=== PATIENT | male | born 1955 | race African-American/Black ===

== ENCOUNTER 2019-02-17 06:20 | Inpatient (IN) | payer BC, OTHER ==
--- NOTE | 2019-02-17 06:36 | PDOC ---
History of Present Illness - General Stated Complaint: NUMBNESS - History of Present Illness Initial Comments: 02/17/19 06:37 The patient is a 63 year old male who denies any significant PMH who presents for evaluation of weakness. The patient reports that he awoke at 1 am and was having difficulty ambulating due to right sided weakness. He noted that he "kept falling over" prompting his presentation to the ED for further evaluation. He states that when went to sleep at 9 pm yesterday evening he was asymptomatic. He otherwise denies fevers, chills, headache, nausea, vomiting, abdominal pain, chest pain, SOB, or changes with urination or bowel movements. tPA Exclusion checklist 3-4.5h - Time Elapsed Date last known well: 02/16/19 Time last known well: 21:00 Elaspsed time: Day(s) and 23 Hour(s) and 24 Minutes - Thrombolytic Therapy Candidate Is patient eligible for thrombolytic therapy: No - Ineligibility reason(s) Reasons No tPA given: Outside of window - delayed arrival NIH Stroke Scale - Last Known Well Date/Time & Onset Date Last Known Well: 02/16/19 Time Last Known Well: 21:00 - Initial Evaluation Level of consciousness: Alert Ask patient the month and their age: Answers both correctly Ask patient to open & close eyes; make fist and let go: Obeys both correctly Best gaze (horizontal eye movement): Normal Visual field testing: No visual field loss Facial paresis (Show teeth/raise eyebrows/close eyes tight): Partial paralysis ( total or near paralysis of lower face) Motor Function: Left Arm: Normal Motor Function: Right Arm: Drift Motor Function: Left Leg: Normal (extends leg 30 degrees for 5 seconds without drift) Motor Function: Right Leg: Drift Limb Ataxia: No ataxia Sensory(Use pinprick test arms,legs,trunk,face/side to side): Normal Best language (Describe picture, name items, read sentences): No Aphasia Dysarthria (read several words): Normal articulation Extinction and Inattention: No abnormality - Total Score NIH Stroke Scale Score: 4 Past History - Past Medical History Allergies/Adverse Reactions: Allergies Allergy/AdvReac Type Severity Reaction Status Date / Time No Known Allergies Allergy Verified 02/17/19 06:37 Home Medications: Ambulatory Orders NK [No Known Home Medication] 02/17/19 Review of Systems - Review of Systems Comments:: 02/17/19 06:44 Constitutional: No fevers, chills, fatigue, malaise HEENT: Facial Droop. No Rhinorrhea, nasal congestion, visual changes Cardiovascular: No chest pain, syncope, palpitations, lightheadedness Respiratory: No Cough, SOB, Hemoptysis, Gastrointestinal: No Abdominal pain, Nausea, Vomiting, Constipation, Diarrhea, Melena Genitourinary: No Dysuria, Frequency, Urgency, Hesitancy, Hematuria, Flank pain Musculoskeletal: No Myalgia, arthralgia Skin: No rashes, itching, bruising, pallor Neurologic: Right sided weakness. No Headache, Dizziness, Numbness, or Tingling Psychiatric: No Hallucinations. No SI or HI *Physical Exam - Physical Exam Comments: 02/17/19 06:45 General Appearance: Nourished. No Apparent Distress HEENT: EOMI, MARILYN. No Pharyngeal Erythema, Tonsillar Exudate, Tonsillar Erythema Neck: No Cervical Lymphadenopathy Respiratory/Chest: Lungs Clear, Normal Breath Sounds. No Crackles, Rales, Rhonchi, Wheezing Cardiovascular: Regular Rhythm, Regular Rate. No Murmur, Gallops, Rubs Gastrointestinal/Abdominal: Normal Bowel Sounds, Soft. No Guarding, Rebound, Tenderness Musculoskeletal: No CVA Tenderness Extremity: Normal Capillary Refill Integumentary: Normal Color, Dry, Warm Neurologic: Right sided facial droop with forehead sparing otherwise seismograph recorder II-XII NML intact, Fully Oriented, Alert, Normal Mood/Affect, Normal Response, Right arm 4/5 strength, Right leg 4/5 strength, Left arm 5/5 strength, Left leg 5/5 strength ED Treatment Course - LABORATORY CBC & Chemistry Diagram: 02/17/19 07:00 02/17/19 07:00 - RADIOLOGY Radiology Studies Ordered: Category Date Time Status HEAD CT (STROKE) [CT] Stat CT Scan 02/17/19 06:33 Ordered CHEST X-RAY PORTABLE* [RAD] Stat Radiology 02/17/19 06:33 Ordered Medical Decision Making - Medical Decision Making 02/17/19 06:47 The patient is a 63 year old male who denies any significant PMH who presents for evaluation of weakness. Differential includes but is not limited to: CVA, TIA, Infectious, Metabolic Derangement. Given the patient's history and physical exam, we will obtain a cbc, cmp, troponin, ua, urine culture, lipid profile, chest plain film, Head CT to evaluate further. We will continue to monitor and reassess while here in the ED. 02/17/19 07:[address] is negative for acute process as preliminarily read by our hand stoner radiologist. We will obtain a brain and neck CTA to evaluate further. The patient was signed out to Dr. De Guzman with the day team pending lab results, CTA imaging and likely admission. *DC/Admit/Observation/Transfer Diagnosis at time of Disposition: Cerebrovascular accident (CVA) - Discharge Dispostion Condition at time of disposition: Guarded - Referrals - Patient Instructions - Post Discharge Activity
--- NOTE | 2019-02-17 06:36 | PDOC ---
Attending Attestation - Resident Resident Name: Drew Aragonel - ED Attending Attestation I have performed the following: I have examined & evaluated the patient, The case was reviewed & discussed with the resident, I agree w/resident's findings & plan, Exceptions are as noted - HPI HPI: 02/17/19 06:35 63M denies PMH but has not been evaluated by a doctor in years, here today with new onset of focal neuro deficits. R sided weaknes, R sided facial droop with forehead sparing. Went to bed around 8pm and woke up around 1am with described symptoms. - Physicial Exam PE: 02/17/19 07:46 Agree with exam as documented by resident focal extremity and facial deficits - Medical Decision Making 02/17/19 07:46 After initial encounter, Code Crump initiated labs pending TPA not indicated Dry CT w/o hemorraghe, obvious ischemia, no dense obstruction signs f/u CTA head neck will need admission for complete work up
[2019-02-17] MEDS ORDERED: SODIUM CHLORIDE 1,000 ML IV SCH (06:45)
[2019-02-17 07:40] LABS: INR 1.11 (0.83-1.09); PROTHROMBIN TIME (PATIENT) 13.1 SEC (9.7-13.0)
[2019-02-17 07:57] LABS: ALBUMIN 4.1 g/dl (3.4-5.0); BILIRUBIN,TOTAL 0.3 mg/dL (0.2-1); BLOOD UREA NITROGEN 11.2 mg/dL (7-18); CALCIUM 8.8 mg/dL (8.5-10.1); CREATININE 1.2 mg/dL (0.55-1.3); POTASSIUM 4.1 mmol/L (3.5-5.1); TOT PROT 7.2 g/dl (6.4-8.2)
[2019-02-17 08:04] LABS: BASO % 0.5 % (0-2.0); EOS % 0.1 % (0-4.5); HEMATOCRIT 42.3 % (35.4-49); HEMOGLOBIN 14.3 GM/dL (11.7-16.9); LYMPH % 13.9 % (8-40); MCH 30.4 pg (25.7-33.7); MCHC 33.8 g/dl (32.0-35.9); MEAN PLT VOLUME 9.5 fl (7.5-11.1); MONO % 6.6 % (3.8-10.2); NEUT % 78.9 % (42.8-82.8); PLATELET COUNT 213 K/MM3 (134-434); RDW 14.5 % (11.9-15.9); WHITE BLOOD COUNT 8.9 K/mm3 (4.0-10.0)
--- NOTE | 2019-02-17 11:49 | PDOC ---
*Physical Exam - Vital Signs Last Vital Signs Temp Pulse Resp BP Pulse Ox 98.5 F 64 18 178/100 H 100 02/17/19 07:38 02/17/19 08:00 02/17/19 08:00 02/17/19 08:00 02/17/19 08:00 ED Treatment Course - LABORATORY CBC & Chemistry Diagram: 02/17/19 07:00 02/17/19 07:00 - ADDITIONAL ORDERS Additional order review: Laboratory Results 02/17/19 02/17/19 02/17/19 10:10 07:00 07:00 PT with INR 13.10 H INR 1.11 H Sodium Potassium Chloride Carbon Dioxide Anion Gap BUN Creatinine Est GFR (CKD-EPI)AfAm Est GFR (CKD-EPI)NonAf Random Glucose Calcium Total Bilirubin AST ALT Alkaline Phosphatase Creatine Kinase Creatine Kinase Index CK-MB (CK-2) Troponin I Total Protein Albumin Triglycerides Cholesterol Total LDL Cholesterol HDL Cholesterol Blood Type A POSITIVE A POSITIVE Antibody Screen Negative 02/17/19 02/17/19 02/17/19 07:00 07:00 07:00 PT with INR INR Sodium 141 Potassium 4.1 Chloride 108 H Carbon Dioxide 27 Anion Gap 6 L BUN 11.2 Creatinine 1.2 Est GFR (CKD-EPI)AfAm 75.19 Est GFR (CKD-EPI)NonAf 64.87 Random Glucose 100 Calcium 8.8 Total Bilirubin 0.3 AST 28 ALT 38 Alkaline Phosphatase 105 Creatine Kinase Creatine Kinase Index CK-MB (CK-2) Troponin I Total Protein 7.2 Albumin 4.1 Triglycerides 45 Cholesterol 141 Total LDL Cholesterol Cancelled 76 HDL Cholesterol 58 Blood Type Antibody Screen 02/17/19 06:38 PT with INR INR Sodium Potassium Chloride Carbon Dioxide Anion Gap BUN Creatinine Est GFR (CKD-EPI)AfAm Est GFR (CKD-EPI)NonAf Random Glucose Calcium Total Bilirubin AST ALT Alkaline Phosphatase Creatine Kinase 258 Creatine Kinase Index 0.8 CK-MB (CK-2) 2.2 Troponin I < 0.02 Total Protein Albumin Triglycerides Cholesterol Total LDL Cholesterol HDL Cholesterol Blood Type Antibody Screen 02/17/19 07:00 RBC 4.70 MCV 90.0 MCHC 33.8 RDW 14.5 MPV 9.5 Neutrophils % 78.9 Lymphocytes % 13.9 Monocytes % 6.6 Eosinophils % 0.1 Basophils % 0.5 Medical Decision Making - Medical Decision Making 02/17/19 11:48 Pt signed out to me by Dr. Aragon. 63M who presents with weakness, concerning for CVA. Pending CTA read. Dr. Velasco called and notified of stat requirement of reading. 02/17/19 11:54 Case d/w radiology who states that he does not see an occlusion. Will admit to stroke unit. *DC/Admit/Observation/Transfer Diagnosis at time of Disposition: Cerebrovascular accident (CVA) Qualifiers: CVA mechanism: unspecified Qualified Code(s): I63.9 - Cerebral infarction, unspecified - Discharge Dispostion Condition at time of disposition: Guarded Decision to Admit order: Yes - Referrals - Patient Instructions - Post Discharge Activity
[2019-02-17] MEDS ORDERED: ASPIRIN 325 MG TABLET PO ONE (12:48)
[2019-02-17] MEDS ORDERED: ATORVASTATIN CA 80 MG TABLET (FP) PO ONE (12:53)
--- NOTE | 2019-02-17 13:05 | PDOC ---
NIH Stroke Scale - Last Known Well Date/Time & Onset Date Last Known Well: 02/17/19 Time Last Known Well: 02:00 - Initial Evaluation Level of consciousness: Alert Ask patient the month and their age: Answers both correctly Ask patient to open & close eyes; make fist and let go: Obeys both correctly Best gaze (horizontal eye movement): Normal Visual field testing: No visual field loss Facial paresis (Show teeth/raise eyebrows/close eyes tight): Minor paralysis ( flattened nasolabial fold, asymmetry on smiling) Motor Function: Left Arm: Normal Motor Function: Right Arm: Normal (extends arm 90 (or 45) degrees for 10 seconds without drift Motor Function: Left Leg: Normal (extends leg 30 degrees for 5 seconds without drift) Motor Function: Right Leg: Normal (extends leg 30 degrees for 5 seconds without drift) Limb Ataxia: Present in one limb Sensory(Use pinprick test arms,legs,trunk,face/side to side): Normal Best language (Describe picture, name items, read sentences): Mild to moderate aphasia (according to cynthia present in ED, EXTREMELY SUBTLE difference between now and pt's baseline. Pt was worse hourse ago and has improved greatly) Dysarthria (read several words): Normal articulation Extinction and Inattention: No abnormality - Total Score NIH Stroke Scale Score: 3
[2019-02-17] MEDS ORDERED: ASPIRIN 325 MG TABLET ONE (13:09)
[2019-02-17] MEDS ORDERED: ATORVASTATIN CA 80 MG TABLET (FP) ONE (13:10)
--- NOTE | 2019-02-17 13:30 | HP ---
<Kali Avendaño - Last Filed: 02/17/19 13:31> CHIEF COMPLAINT: leg heaviness PCP: none. Agrees to come to resident's clinic HISTORY OF PRESENT ILLNESS: Pt is a 63 y/o M with no known medical history who has not seen a doctor "since he was born". He states that he was in his usual state of health until last night when he woke around 2 am to urinate. He states he suddenly felt weakness of the right leg and stumbled. He went to his bedroom and sat on his bed. He then stood and again felt weakness of the right leg and stumbled. He believed this to be the result of feeling sleepy as he just woke up. He drove himself to a friend's house and on seeing him, his friend insisted on coming to the doctor. In ED he was found to have RUE and RLE weakness and stroke code was activated. CT head, CTA head and neck were negative. CXR unremarkable. He was outside the TPA window. ER course was notable for: (1)as above (2) (3) Recent Travel: denies PAST MEDICAL HISTORY: none PAST SURGICAL HISTORY: Social History: Smoking: luis Alcohol: denies Drugs: occasional marijuana Allergies No Known Allergies Allergy (Verified 02/17/19 06:37) HOME MEDICATIONS: Home Medications Medication Instructions Recorded NK [No Known Home Medication] 02/17/19 REVIEW OF SYSTEMS CONSTITUTIONAL: Absent: fever, chills, diaphoresis, generalized weakness, malaise, loss of appetite, weight change HEENT: Absent: rhinorrhea, nasal congestion, throat pain, throat swelling, difficulty swallowing, mouth swelling, ear pain, eye pain, visual changes CARDIOVASCULAR: Absent: chest pain, syncope, palpitations, irregular heart rate, lightheadedness , peripheral edema RESPIRATORY: Absent: cough, shortness of breath, dyspnea with exertion, orthopnea, wheezing, stridor, hemoptysis GASTROINTESTINAL: Absent: abdominal pain, abdominal distension, nausea, vomiting, diarrhea, constipation, melena, hematochezia GENITOURINARY: Absent: dysuria, frequency, urgency, hesitancy, hematuria, flank pain, genital pain MUSCULOSKELETAL: Absent: myalgia, arthralgia, joint swelling, back pain, neck pain SKIN: Absent: rash, itching, pallor HEMATOLOGIC/IMMUNOLOGIC: Absent: easy bleeding, easy bruising, lymphadenopathy, frequent infections ENDOCRINE: Absent: unexplained weight gain, unexplained weight loss, heat intolerance, cold intolerance NEUROLOGIC: focal weakness or paresthesias Absent: headache, , dizziness, unsteady gait, seizure, mental status changes, bladder or bowel incontinence PSYCHIATRIC: Absent: anxiety, depression, suicidal or homicidal ideation, hallucinations. PHYSICAL EXAMINATION Vital Signs - 24 hr 02/17/19 02/17/19 02/17/19 06:26 06:40 06:45 Temperature 97.6 F Pulse Rate 66 66 Pulse Rate [ Right Radial] Respiratory 18 Rate Blood Pressure 187/118 H Blood Pressure 192/104 H [Left Arm] O2 Sat by Pulse 99 100 Oximetry (%) 02/17/19 02/17/19 02/17/19 06:56 07:28 07:38 Temperature 98.5 F Pulse Rate Pulse Rate [ 66 72 Right Radial] Respiratory 20 18 Rate Blood Pressure Blood Pressure 186/108 H 193/105 H [Left Arm] O2 Sat by Pulse 100 100 100 Oximetry (%) 02/17/19 02/17/19 08:00 12:37 Temperature 97.8 F Pulse Rate Pulse Rate [ 64 60 Right Radial] Respiratory 18 18 Rate Blood Pressure Blood Pressure 178/100 H 178/114 H [Left Arm] O2 Sat by Pulse 100 99 Oximetry (%) GENERAL: Awake, alert, and fully oriented, in no acute distress. HEAD: Normal with no signs of trauma. EYES: Pupils equal, round and reactive to light, extraocular movements intact, sclera anicteric, conjunctiva clear. No lid lag. EARS, NOSE, THROAT: Ears normal, nares patent, oropharynx clear without exudates. Moist mucous membranes. NECK: Normal range of motion, supple without lymphadenopathy, JVD, or masses. LUNGS: Breath sounds equal, clear to auscultation bilaterally. No wheezes, and no crackles. No accessory muscle use. HEART: Regular rate and rhythm, normal S1 and S2 without murmur, rub or gallop. ABDOMEN: Soft, nontender, not distended, normoactive bowel sounds, no guarding, no rebound, no masses. No hepatomegaly or splenomegaly. MUSCULOSKELETAL: Normal range of motion at all joints. No bony deformities or tenderness. No CVA tenderness. UPPER EXTREMITIES: 2+ pulses, warm, well-perfused. No cyanosis. No clubbing. No peripheral edema. LOWER EXTREMITIES: 2+ pulses, warm, well-perfused. No calf tenderness. No peripheral edema. NEUROLOGICAL: R nasolabial flattening and incomplete elevation on CN exam. PERRL, EOMI, symmetrical elevation of eyebrows. Shoulder shrug weaker on the right. CN 2-12 otherwise intact. RUE 4/5 strength in shoulder adduction/ abduction/flexion/extension, elbow flexion/extension, LUE 5/5 strength, RLE 4/5 strength hip flexion/extension, knee flexion/extension, 5/5 ankle flexion/ extension, LLE strength 5/5 throughout, sensation intact throughout (though pt notes background tingling in RUE & RLE), reflexes 2+ at b/l biceps, patellar, ankle. No pronator drift. Pt had difficulty with dysdiadochokenesia of R hand, R heel to li, and had R dysmetria. PSYCHIATRIC: Cooperative. Good eye contact. Appropriate mood and affect. SKIN: Warm, dry, normal turgor, no rashes or lesions noted, normal capillary refill. Laboratory Results - last 24 hr 02/17/19 02/17/19 02/17/19 06:38 07:00 07:00 WBC 8.9 RBC 4.70 Hgb 14.3 Hct 42.3 MCV 90.0 MCH 30.4 MCHC 33.8 RDW 14.5 Plt Count 213 MPV 9.5 Absolute Neuts (auto) 7.1 Neutrophils % 78.9 Lymphocytes % 13.9 Monocytes % 6.6 Eosinophils % 0.1 Basophils % 0.5 Nucleated RBC % 0 PT with INR INR Sodium Potassium Chloride Carbon Dioxide Anion Gap BUN Creatinine Est GFR (CKD-EPI)AfAm Est GFR (CKD-EPI)NonAf Random Glucose Calcium Total Bilirubin AST ALT Alkaline Phosphatase Creatine Kinase 258 Creatine Kinase Index 0.8 CK-MB (CK-2) 2.2 Troponin I < 0.02 Total Protein Albumin Triglycerides Cholesterol 141 Total LDL Cholesterol HDL Cholesterol Blood Type Antibody Screen 02/17/19 02/17/19 02/17/19 07:00 07:00 07:00 WBC RBC Hgb Hct MCV MCH MCHC RDW Plt Count MPV Absolute Neuts (auto) Neutrophils % Lymphocytes % Monocytes % Eosinophils % Basophils % Nucleated RBC % PT with INR 13.10 H INR 1.11 H Sodium 141 Potassium 4.1 Chloride 108 H Carbon Dioxide 27 Anion Gap 6 L BUN 11.2 Creatinine 1.2 Est GFR (CKD-EPI)AfAm 75.19 Est GFR (CKD-EPI)NonAf 64.87 Random Glucose 100 Calcium 8.8 Total Bilirubin 0.3 AST 28 ALT 38 Alkaline Phosphatase 105 Creatine Kinase Creatine Kinase Index CK-MB (CK-2) Troponin I Total Protein 7.2 Albumin 4.1 Triglycerides 45 Cholesterol Total LDL Cholesterol 76 Cancelled HDL Cholesterol 58 Blood Type Antibody Screen 02/17/19 02/17/19 07:00 10:10 WBC RBC Hgb Hct MCV MCH MCHC RDW Plt Count MPV Absolute Neuts (auto) Neutrophils % Lymphocytes % Monocytes % Eosinophils % Basophils % Nucleated RBC % PT with INR INR Sodium Potassium Chloride Carbon Dioxide Anion Gap BUN Creatinine Est GFR (CKD-EPI)AfAm Est GFR (CKD-EPI)NonAf Random Glucose Calcium Total Bilirubin AST ALT Alkaline Phosphatase Creatine Kinase Creatine Kinase Index CK-MB (CK-2) Troponin I Total Protein Albumin Triglycerides Cholesterol Total LDL Cholesterol HDL Cholesterol Blood Type A POSITIVE A POSITIVE Antibody Screen Negative ASSESSMENT/PLAN: This is a 63 y/o M with no PMH who presented to ED with signs and symptoms of cva/tia. #CVA/TIA -persistent RUE, RLE weakness, and R nasolabial fold flattening -ASA 325 given -ASA 81 daily -Atorvastatin 80 -Echo -Carotid doppler -lipids -Neuro consulted, recs appreciated -permissive HTN #HTN -will allow permissive HTN up to 185/120 until midnight BP elevated in ED. Will allow permissive HTN for total 24 hrs (ending around midnight tonight). Visit type - Emergency Visit Emergency Visit: Yes Care time: The patient presented to the Emergency Department on the above date and was hospitalized for further evaluation of their emergent condition. - New Patient This patient is new to me today: Yes Date on this admission: 02/17/19 - Critical Care Critical Care patient: No ATTENDING PHYSICIAN STATEMENT I saw and evaluated the patient. I reviewed the resident's note and discussed the case with the resident. I agree with the resident's findings and plan as documented. SUBJECTIVE: OBJECTIVE: ASSESSMENT AND PLAN: <Finn Ferguson - Last Filed: 02/17/19 16:45> Seen and examined; please refer to my note for further discussion. Verified all little components of history and PE ATTENDING PHYSICIAN STATEMENT I saw and evaluated the patient. I reviewed the resident's note and discussed the case with the resident. I agree with the resident's findings and plan as documented. SUBJECTIVE: OBJECTIVE: ASSESSMENT AND PLAN:
[2019-02-17 13:46] LABS: URINE APPEARANCE CLEAR; URINE BILIRUBIN NEGATIVE (NEGATIVE); URINE COLOR YELLOW; URINE GLUCOSE (UA) NEGATIVE (NEGATIVE); URINE KETONE NEGATIVE (NEGATIVE); URINE LEUK ESTERASE NEGATIVE (NEGATIVE); URINE NITRITE NEGATIVE (NEGATIVE); URINE PROTEIN NEGATIVE (NEGATIVE); URINE UROBILINOGEN 0.2 mg/dL (0.2-1.0)
[2019-02-17] MEDS: SODIUM CHLORIDE 1,000 ML IV SCH (13:50)
--- NOTE | 2019-02-17 13:58 | ECHO ---
Name: MORELIA, YURIDIA Exam:Adult Echocardiogram Study Date: 02/17/2019 01:19 PM Age: 63 yrs Reason For Study: CVA Height: 72 in Weight: 190 lb BSA: 2.1 m2 MMode/2D Measurements & Calculations IVSd: 1.3 cm Ao root diam: 3.1 cm LVIDd: 4.8 cm LA dimension: 3.7 cm LVIDs: 3.0 cm LVPWd: 0.95 cm EDV(Teich): 107.3 ml LVOT diam: 2.0 cm ESV(Teich): 35.0 ml LAV (MOD-bp): 54.8 ml Doppler Measurements & Calculations MV E max iker: 85.4 cm/sec Ao V2 max: 134.4 cm/sec MV A max iker: 59.2 cm/sec Ao max P.2 mmHg MV E/A: 1.4 MV dec time: 0.17 sec ALPA(V,D): 2.4 cm2 LV V1 max P.6 mmHg TR max iker: 238.2 cm/sec LV V1 max: 107.2 cm/sec TR max P.7 mmHg PA V2 max: 133.0 cm/sec Med Peak E' Iker: 6.5 cm/sec PA max P.1 mmHg Med E/e': 13.1 Lat Peak E' Iker: 13.7 cm/sec Lat E/e': 6.2 Left Ventricle There is mild concentric left ventricular hypertrophy. Left ventricular systolic function is normal. Ejection Fraction = 55-60%. Left Ventricular Filling pattern is normal for age. Right Ventricle The right ventricle is normal in size and function. Atria The interatrial septum is not well seen. Mitral Valve The mitral valve is normal in structure and function. There is no mitral valve stenosis. There is mil d mitral regurgitation. Tricuspid Valve The tricuspid valve is normal in structure and function. There is mild tricuspid regurgitation. Right ventricular systolic pressure is normal. Aortic Valve The aortic valve opens well. No hemodynamically significant valvular aortic stenosis. No aortic regur gitation is present. Pulmonic Valve The pulmonic valve is not well seen, but is grossly normal. There is no pulmonic valvular stenosis. T here is no pulmonic valvular regurgitation. Great Vessels The aortic root is normal size. Pericardium/Pleura There is no pericardial effusion. Interpretation Summary There is mild concentric left ventricular hypertrophy. Left ventricular systolic function is normal. Ejection Fraction = 55-60%. The interatrial septum is not well seen. There is mild mitral regurgitation. There is mild tricuspid regurgitation. Right ventricular systolic pressure is normal. There is no pericardial effusion. MD Lim *Meghan 02/17/2019 01:57 PM
--- NOTE | 2019-02-17 16:37 | PN ---
Teaching Attending Note Name of Resident: Kali Avendaño ATTENDING PHYSICIAN STATEMENT I saw and evaluated the patient. I reviewed the resident's note and discussed the case with the resident. I agree with the resident's findings and plan as documented. Patient seen and examined; please refer to resident note for further historical information. Briefly, this is a 63 y/o gentleman presenting with CVA vs. TIA; 2AM noted to have RLE weakness; now with RLE and RUE weakness, nasolabial flattening. NIHSS completed in ER and redone by resident team per documentation. 10 sys ROS done and negative aside from HPI. PMH, PSH, FH, SH reviewed. All vital parts of history and physical exam verified by myself and are accurate unless supplemented by myself. VS, labs, imaging reviewed NAD, AAO, resting comfortably in bed NC AT EOMI PERRLA RRR s1/2 Lungs CTAB, w/ sym exp NT ND +BS Normal mood, appropriate behavior Please refer to the wonderful NIHSS assessment by resident Dr. Avendaño for stroke scale; agree MRI pending Dopplers: Non-hemodynamically sig. minor stenosis CT, CTA head: No AVM or large clot, no Echo: Mild conc. LVH, mild valvular disease, no LAE with LVEF wnl Telemetry ordered; pending review EKG reviewed ASSESSMENT AND PLAN: Patient presents with symptoms suspicious for TIA/CVA. Will place on the floor with neuro checks, PT/ST eval, seizure precautions. Monitor tele. MRI, echo, carotid dopplers pending. Followup neurology consult; appreciate expert guidance in the ongoing management of this patient. Continue ASA, statin. Problems include: -R/O CVA -Uncontrolled HTN with alotment for permissive HTN with regard to #1 -Cannabis abuse NOS -Overweight (BMI >25) -Mild valvular disease Full Code
[2019-02-17 18:29] VITALS: BMI 24.0
[2019-02-17 18:39] LABS: COCAINE, UR NEGATIVE ng/ml (CUTOFF=300); METHADONE, UR NEGATIVE ng/ml (CUTOFF=300); OPIATES, URI NEGATIVE ng/ml (CUTOFF=300); PHENCYCLIDINE,URINE NEGATIVE ng/ml (CUTOFF=25); URINE AMPHETAMINES NEGATIVE ng/ml (CUTOFF=500); URINE BARBITURATES NEGATIVE ng/ml (CUTOFF=200); URINE BENZODIAZEPINES NEGATIVE ng/ml (CUTOFF=200)
[2019-02-17] MEDS ORDERED: cloNIDine HCL 0.1 MG TABLET PO ONE (19:30)
[2019-02-17] MEDS ORDERED: ATORVASTATIN CA 40 MG TABLET (FP) PO SCH (22:00)
[2019-02-18] MEDS: amLODIPine BESYLATE 5 MG TABLET (FP) PO SCH ×2 (08:30→09:09)
[2019-02-18] MEDS: ASPIRIN COATED 81 MG TABLET.EC PO SCH (09:15)
--- NOTE | 2019-02-18 10:02 | PN ---
Physical Exam: SUBJECTIVE: Patient seen and examined with RN; no new complaints this AM. Still has R-arm drife and R-leg drift and R-nasolabial flattening. No swallow deficits noted and passed ER swallow eval. Pending PT consult and neurology consult as well as MRI. A1c and lipids acceptable. Continue ASA81 and statin. BP elevated this AM; starting on amlodipine and will followup recommendations for permissive HTN. No events reported on telemetry will continue to monitor. Appreciate help from subspecialty services in the management of this medically complex patient. 10 sys ROS done and negative aside from HPI OBJECTIVE: Vital Signs Period Temp Pulse Resp BP Sys/Li Pulse Ox Last 24 Hr 97.8 F-98.6 F 54-96 18-24 117-198/75-117 98-100 GENERAL: The patient is awake, alert, and fully oriented, in no acute distress. HEAD: Normal with no signs of trauma. EYES: PERRL, extraocular movements intact, sclera anicteric, conjunctiva clear. No ptosis. ENT: Ears normal, nares patent, oropharynx clear without exudates, moist mucous membranes. NECK: Trachea midline, full range of motion, supple. LUNGS: Breath sounds equal, clear to auscultation bilaterally, no wheezes, no crackles, no accessory muscle use. HEART: Regular rate and rhythm, S1, S2 without murmur, rub or gallop. ABDOMEN: Soft, nontender, nondistended, normoactive bowel sounds, no guarding, no rebound, no hepatosplenomegaly, no masses. EXTREMITIES: 2+ pulses, warm, well-perfused, no edema. NEUROLOGICAL: R-nl flattening noted with R-arm and R-leg drift noted; supervisor kennel strength intact. No dysarthria or dysphagia. Did not assess gait-pending PT eval. PSYCH: Normal mood, normal affect. SKIN: Warm, dry, normal turgor, no rashes or lesions noted Laboratory Results - last 24 hr 02/17/19 02/17/19 02/17/19 10:10 13:20 13:20 ESR Hemoglobin A1c % Creatine Kinase 222 Creatine Kinase Index 0.8 CK-MB (CK-2) 1.9 Troponin I < 0.02 C-Reactive Protein Vitamin B12 TSH Urine Color Yellow Urine Appearance Clear Urine pH 8.0 Ur Specific [place] 1.042 H Urine Protein Negative Urine Glucose (UA) Negative Urine Ketones Negative Urine Blood Negative Urine Nitrite Negative Urine Bilirubin Negative Urine Urobilinogen 0.2 Ur Leukocyte Esterase Negative Opiates Screen Methadone Screen Barbiturate Screen Phencyclidine Screen Ur Amphetamines Screen MDMA (Ecstasy) Screen Benzodiazepines Screen Cocaine Screen U Marijuana (THC) Screen Blood Type A POSITIVE 02/17/19 02/17/19 02/17/19 18:00 21:00 21:00 ESR 5 Hemoglobin A1c % Creatine Kinase Creatine Kinase Index CK-MB (CK-2) Troponin I C-Reactive Protein < 0.3 Vitamin B12 TSH Urine Color Urine Appearance Urine pH Ur Specific [place] Urine Protein Urine Glucose (UA) Urine Ketones Urine Blood Urine Nitrite Urine Bilirubin Urine Urobilinogen Ur Leukocyte Esterase Opiates Screen Negative Methadone Screen Negative Barbiturate Screen Negative Phencyclidine Screen Negative Ur Amphetamines Screen Negative MDMA (Ecstasy) Screen Negative Benzodiazepines Screen Negative Cocaine Screen Negative U Marijuana (THC) Screen Positive A* Blood Type 02/18/19 02/18/19 02/18/19 05:20 05:20 05:20 ESR Hemoglobin A1c % 5.9 Creatine Kinase Creatine Kinase Index CK-MB (CK-2) Troponin I C-Reactive Protein Vitamin B12 464 TSH 0.52 Urine Color Urine Appearance Urine pH Ur Specific [place] Urine Protein Urine Glucose (UA) Urine Ketones Urine Blood Urine Nitrite Urine Bilirubin Urine Urobilinogen Ur Leukocyte Esterase Opiates Screen Methadone Screen Barbiturate Screen Phencyclidine Screen Ur Amphetamines Screen MDMA (Ecstasy) Screen Benzodiazepines Screen Cocaine Screen U Marijuana (THC) Screen Blood Type Active Medications Generic Name Dose Route Start Last Admin Trade Name Susy PRN Reason Stop Dose Admin Amlodipine Besylate 5 mg 02/18/19 10:00 02/18/19 09:09 Norvasc - PO Not Given DAILY OSMANY Aspirin 81 mg 02/18/19 10:00 02/18/19 09:15 Ecotrin - PO 81 mg DAILY OSMANY Administration Atorvastatin Calcium 40 mg 02/18/19 22:00 Lipitor - PO HS OSMANY Sodium Chloride 1,000 mls @ 42 mls/hr 02/17/19 13:00 02/17/19 13:50 Normal Saline - IV 42 mls/hr ASDIR OSMANY Administration ASSESSMENT/PLAN: Patient presents with symptoms suspicious for CVA; they have persisted >24 hours. He is still pending MRI and is on ASA and statin. He is pending neurology consult. Started on amlodipine for HTN. Monitoring on tele. Echo, CT head, carotid dopplers, and angiography reviewed and without significant acute abnormality. Appreciate neurology input in the ongoing management of this patient. Problems include: -R/O CVA -Uncontrolled HTN with allotment for permissive HTN with regard to #1 (Started on Amlodipine, following guidelines for permissive HTN) -Cannabis abuse NOS -Overweight (BMI >25) -Mild valvular disease Full Code Visit type - Emergency Visit Emergency Visit: No - New Patient This patient is new to me today: No - Critical Care Critical Care patient: No
--- NOTE | 2019-02-18 11:25 | CONSULT ---
Consult - text type - Consultation Consultation Note: Neurology HISTORY OF PRESENT ILLNESS: Pt is a 63 y/o M with no known medical history who has not seen a doctor "since he was born". He stated that he was in his usual state of health until last night, night prior to admission when he woke around 2 am to urinate. He stated he suddenly felt weakness of the right leg and stumbled. He went to his bedroom and sat on his bed. He then stood and again felt weakness of the right leg and stumbled. He believed this to be the result of feeling sleepy as he just woke up. He drove himself to a friend's house and on seeing him, his friend insisted on coming to the doctor. Head CT showed mild to moderate volume loss without acute changes. Head/Neck CTA howed tiny calcified plaque in the left common bifurcation without hemodynamic significant stenosis. Carotid doppler completed with mild thickening of the common bifurcation bilaterally without hemodynamic significant stenosis. Echocardiogram completed with EF 55-60%, mild mirtal and tricuspid regurgitation. Will need MRI brain to evaluate further and not yet completed. Reports improved strength in RLE. LDL checked and in normal range, therefore would not require statin. Recent Travel: denies PAST MEDICAL HISTORY: none PAST SURGICAL HISTORY: Social History: Smoking: luis Alcohol: denies Drugs: occasional marijuana Allergies No Known Allergies Allergy (Verified 02/17/19 06:37) HOME MEDICATIONS: Ambulatory Orders NK [No Known Home Medication] 02/17/19 REVIEW OF SYSTEMS CONSTITUTIONAL: Absent: fever, chills, diaphoresis, generalized weakness, malaise, loss of appetite, weight change HEENT: Absent: rhinorrhea, nasal congestion, throat pain, throat swelling, difficulty swallowing, mouth swelling, ear pain, eye pain, visual changes CARDIOVASCULAR: Absent: chest pain, syncope, palpitations, irregular heart rate, lightheadedness , peripheral edema RESPIRATORY: Absent: cough, shortness of breath, dyspnea with exertion, orthopnea, wheezing, stridor, hemoptysis GASTROINTESTINAL: Absent: abdominal pain, abdominal distension, nausea, vomiting, diarrhea, constipation, melena, hematochezia GENITOURINARY: Absent: dysuria, frequency, urgency, hesitancy, hematuria, flank pain, genital pain MUSCULOSKELETAL: Absent: myalgia, arthralgia, joint swelling, back pain, neck pain SKIN: Absent: rash, itching, pallor HEMATOLOGIC/IMMUNOLOGIC: Absent: easy bleeding, easy bruising, lymphadenopathy, frequent infections ENDOCRINE: Absent: unexplained weight gain, unexplained weight loss, heat intolerance, cold intolerance NEUROLOGIC: focal weakness or paresthesias Absent: headache, , dizziness, unsteady gait, seizure, mental status changes, bladder or bowel incontinence PSYCHIATRIC: Absent: anxiety, depression, suicidal or homicidal ideation, hallucinations. PHYSICAL EXAMINATION Vital Signs Period Temp Pulse Resp BP Sys/Li Pulse Ox Last 24 Hr 97.8 F-98.6 F 54-96 18-24 117-198/75-117 98-100 GENERAL: Awake, alert, and fully oriented, in no acute distress. HEAD: Normal with no signs of trauma. EYES: Pupils equal, round and reactive to light, extraocular movements intact, sclera anicteric, conjunctiva clear. No lid lag. EARS, NOSE, THROAT: Ears normal, nares patent, oropharynx clear without exudates. Moist mucous membranes. NECK: Normal range of motion, supple without lymphadenopathy, JVD, or masses. LUNGS: Breath sounds equal, clear to auscultation bilaterally. No wheezes, and no crackles. No accessory muscle use. HEART: Regular rate and rhythm, normal S1 and S2 without murmur, rub or gallop. ABDOMEN: Soft, nontender, not distended, normoactive bowel sounds, no guarding, no rebound, no masses. No hepatomegaly or splenomegaly. MUSCULOSKELETAL: Normal range of motion at all joints. No bony deformities or tenderness. No CVA tenderness. UPPER EXTREMITIES: 2+ pulses, warm, well-perfused. No cyanosis. No clubbing. No peripheral edema. LOWER EXTREMITIES: 2+ pulses, warm, well-perfused. No calf tenderness. No peripheral edema. NEUROLOGICAL: R nasolabial flattening and incomplete elevation on CN exam. PERRL, EOMI, symmetrical elevation of eyebrows. Shoulder shrug weaker on the right. CN 2-12 otherwise intact. RUE 5-/5 strength, LUE 5/5 strength, RLE 4+/5 strength hip flexion/extension, knee flexion/extension, LLE strength 5/5 throughout, sensation intact throughout, reflexes 2+ at b/l biceps, patellar, ankle, No pronator drift. Pt had difficulty with dysdiadochokenesia of R hand, R heel to li, and had R dysmetria. PSYCHIATRIC: Cooperative. Good eye contact. Appropriate mood and affect. SKIN: Warm, dry, normal turgor, no rashes or lesions noted, normal capillary refill. CBCD WBC 8.9 K/mm3 (4.0-10.0) 02/17/19 07:00 RBC 4.70 M/mm3 (4.00-5.60) 02/17/19 07:00 Hgb 14.3 GM/dL (11.7-16.9) 02/17/19 07:00 Hct 42.3 % (35.4-49) 02/17/19 07:00 MCV 90.0 fl (80-96) 02/17/19 07:00 MCHC 33.8 g/dl (32.0-35.9) 02/17/19 07:00 RDW 14.5 % (11.9-15.9) 02/17/19 07:00 Plt Count 213 K/MM3 (134-434) 02/17/19 07:00 MPV 9.5 fl (7.5-11.1) 02/17/19 07:00 CMP Sodium 141 mmol/L (136-145) 02/17/19 07:00 Potassium 4.1 mmol/L (3.5-5.1) 02/17/19 07:00 Chloride 108 mmol/L (98-107) H 02/17/19 07:00 Carbon Dioxide 27 mmol/L (21-32) 02/17/19 07:00 Anion Gap 6 MMOL/L (8-16) L 02/17/19 07:00 BUN 11.2 mg/dL (7-18) 02/17/19 07:00 Creatinine 1.2 mg/dL (0.55-1.3) 02/17/19 07:00 Random Glucose 100 mg/dL (74-106) 02/17/19 07:00 Calcium 8.8 mg/dL (8.5-10.1) 02/17/19 07:00 Total Bilirubin 0.3 mg/dL (0.2-1) 02/17/19 07:00 AST 28 U/L (15-37) 02/17/19 07:00 ALT 38 U/L (13-61) 02/17/19 07:00 Alkaline Phosphatase 105 U/L (45-117) 02/17/19 07:00 Total Protein 7.2 g/dl (6.4-8.2) 02/17/19 07:00 Albumin 4.1 g/dl (3.4-5.0) 02/17/19 07:00 CARDIAC ENZYMES Creatine Kinase 222 U/L (26-308) 02/17/19 13:20 Troponin I < 0.02 ng/ml (0.00-0.05) 02/17/19 13:20 ASSESSMENT/PLAN: 63 y/o M with no known medical history who has not seen a doctor "since he was born". He stated that he was in his usual state of health until last night, night prior to admission when he woke around 2 am to urinate. He stated he suddenly felt weakness of the right leg and stumbled. He went to his bedroom and sat on his bed. He then stood and again felt weakness of the right leg and stumbled. He believed this to be the result of feeling sleepy as he just woke up. He drove himself to a friend's house and on seeing him, his friend insisted on coming to the doctor. Head CT showed mild to moderate volume loss without acute changes. Head/Neck CTA howed tiny calcified plaque in the left common bifurcation without hemodynamic significant stenosis. Carotid doppler completed with mild thickening of the common bifurcation bilaterally without hemodynamic significant stenosis. Echocardiogram completed with EF 55-60%, mild mirtal and tricuspid regurgitation. Will need MRI brain to evaluate further and not yet completed. Reports improved strength in RLE. LDL checked and in normal range, therefore would not require statin. Work up otherwise completed. Physical therapy as tolerated. Consider short term rehab if patient amenable. Fall precautions needed. ASA 81mg daily for now, not on antiplalet at home. Monitor blood pressure, maintain < 160/90 for now. Goal < 140/90 as outpatient. DVT ppx.
[2019-02-18] MEDS ORDERED: cloNIDine HCL 0.1 MG TABLET PO STA (18:48)
[2019-02-18] MEDS: SODIUM CHLORIDE 1,000 ML IV SCH (19:41)
[2019-02-18] MEDS ORDERED: ATORVASTATIN CA 40 MG TABLET (FP) PO SCH (22:00)
--- NOTE | 2019-02-18 23:44 | EKG ---
Test Reason : Blood Pressure : / mmHG Vent. Rate : 069 BPM Atrial Rate : 069 BPM P-R Int : 158 ms QRS Dur : 086 ms QT Int : 424 ms P-R-T Axes : 042 -17 009 degrees QTc Int : 454 ms NORMAL SINUS RHYTHM WITH SINUS ARRHYTHMIA POSSIBLE LEFT ATRIAL ENLARGEMENT NONSPECIFIC T WAVE ABNORMALITY ABNORMAL ECG WHEN COMPARED WITH ECG OF 17-FEB-2019 06:54, NONSPECIFIC T WAVE ABNORMALITY NOW EVIDENT IN LATERAL LEADS Confirmed by MONCHO MELCHOR MD ([id number]) on 02/18/2019 11:44:17 PM Referred By: Confirmed By:MONCHO MELCHOR MD
--- NOTE | 2019-02-19 08:26 | PN ---
Physical Exam: SUBJECTIVE: Patient seen and examined; increasing amlodipine, pending MRI. Neuro exam remains improved. Got PRN clonidine; will repeat dose if SBP >140. Unsteadiness observed with ambulation; will require rehab and he is in agreement. PT eval formally pending. OBJECTIVE: Vital Signs Period Temp Pulse Resp BP Sys/Li Pulse Ox Last 24 Hr 98 F-98.6 F 58-78 18-26 151-185/11-126 98 GENERAL: The patient is awake, alert, and fully oriented, in no acute distress. HEAD: Normal with no signs of trauma. EYES: PERRL, extraocular movements intact, sclera anicteric, conjunctiva clear. No ptosis. ENT: Ears normal, nares patent, oropharynx clear without exudates, moist mucous membranes. NECK: Trachea midline, full range of motion, supple. LUNGS: Breath sounds equal, clear to auscultation bilaterally, no wheezes, no crackles, no accessory muscle use. HEART: Regular rate and rhythm, S1, S2 without murmur, rub or gallop. ABDOMEN: Soft, nontender, nondistended, normoactive bowel sounds, no guarding, no rebound, no hepatosplenomegaly, no masses. EXTREMITIES: 2+ pulses, warm, well-perfused, no edema. NEUROLOGICAL: R-nl flattening noted with R-arm and R-leg drift noted; forensic dna analyst strength intact. No dysarthria or dysphagia. Did not assess gait-pending PT eval. PSYCH: Normal mood, normal affect. SKIN: Warm, dry, normal turgor, no rashes or lesions noted Laboratory Results - last 24 hr 02/18/19 02/18/19 05:20 05:20 Hemoglobin A1c % 5.9 RPR Titer Nonreactive Active Medications Generic Name Dose Route Start Last Admin Trade Name Freq PRN Reason Stop Dose Admin Amlodipine Besylate 5 mg 02/18/19 10:00 02/18/19 09:09 Norvasc - PO Not Given DAILY OSMANY Aspirin 81 mg 02/18/19 10:00 02/18/19 09:15 Ecotrin - PO 81 mg DAILY OSMANY Administration ASSESSMENT/PLAN: Patient presents with symptoms suspicious for CVA; they have persisted >24 hours. He is still pending MRI and is on ASA and statin. He is pending neurology consult. Started on amlodipine for HTN. Monitoring on tele. Echo, CT head, carotid dopplers, and angiography reviewed and without significant acute abnormality. Appreciate neurology input in the ongoing management of this patient. Discussed with nursing regarding MRI; they are calling down [facility] DC tele; no events for entirety of admission Continue neuro checks, move to med surg floor. Problems include: -R/O CVA -Uncontrolled HTN with allotment for permissive HTN with regard to #1 (Started on Amlodipine, following guidelines for permissive HTN) -Cannabis abuse NOS -Overweight (BMI >25) -Mild valvular disease Visit type - Emergency Visit Emergency Visit: No - New Patient This patient is new to me today: No - Critical Care Critical Care patient: No
[2019-02-19] MEDS: amLODIPine BESYLATE 5 MG TABLET (FP) PO SCH (09:25)
[2019-02-19] MEDS: ASPIRIN COATED 81 MG TABLET.EC PO SCH (09:25)
[2019-02-19 11:14] LABS: BASO % 0.6 % (0-2.0); EOS % 0.5 % (0-4.5); HEMATOCRIT 50.1 % (35.4-49); HEMOGLOBIN 16.8 GM/dL (11.7-16.9); LYMPH % 17.2 % (8-40); MCH 29.9 pg (25.7-33.7); MCHC 33.5 g/dl (32.0-35.9); MEAN CELL VOLUME 89.2 fl (80-96); MEAN PLT VOLUME 8.8 fl (7.5-11.1); MONO % 9.5 % (3.8-10.2); NEUT % 72.2 % (42.8-82.8); PLATELET COUNT 229 K/MM3 (134-434); RBC 5.62 M/mm3 (4.00-5.60); RDW 14.1 % (11.9-15.9); WHITE BLOOD COUNT 9.5 K/mm3 (4.0-10.0)
--- NOTE | 2019-02-19 11:26 | PN ---
Progress Note (short form) - Note Progress Note: Neurology HISTORY OF PRESENT ILLNESS: Pt is a 63 y/o M with no known medical history who has not seen a doctor "since he was born". He stated that he was in his usual state of health until last night, night prior to admission when he woke around 2 am to urinate. He stated he suddenly felt weakness of the right leg and stumbled. He went to his bedroom and sat on his bed. He then stood and again felt weakness of the right leg and stumbled. He believed this to be the result of feeling sleepy as he just woke up. He drove himself to a friend's house and on seeing him, his friend insisted on coming to the doctor. Head CT showed mild to moderate volume loss without acute changes. Head/Neck CTA howed tiny calcified plaque in the left common bifurcation without hemodynamic significant stenosis. Carotid doppler completed with mild thickening of the common bifurcation bilaterally without hemodynamic significant stenosis. Echocardiogram completed with EF 55-60%, mild mirtal and tricuspid regurgitation. Will need MRI brain to evaluate further and not yet completed. Reports improved strength in RLE. LDL checked and in normal range, therefore would not require statin. Active Medications Amlodipine Besylate (Norvasc -) 10 mg PO DAILY [facility] Aspirin (Ecotrin -) 81 mg PO DAILY [facility] Last Admin: 02/19/19 09:25 Dose: 81 mg PHYSICAL EXAMINATION Vital Signs Period Temp Pulse Resp BP Sys/Li Pulse Ox Last 24 Hr 98 F-98.6 F 57-78 17-26 146-185/11-126 98-98 GENERAL: Awake, alert, and fully oriented, in no acute distress. HEAD: Normal with no signs of trauma. EYES: Pupils equal, round and reactive to light, extraocular movements intact, sclera anicteric, conjunctiva clear. No lid lag. EARS, NOSE, THROAT: Ears normal, nares patent, oropharynx clear without exudates. Moist mucous membranes. NECK: Normal range of motion, supple without lymphadenopathy, JVD, or masses. LUNGS: Breath sounds equal, clear to auscultation bilaterally. No wheezes, and no crackles. No accessory muscle use. HEART: Regular rate and rhythm, normal S1 and S2 without murmur, rub or gallop. ABDOMEN: Soft, nontender, not distended, normoactive bowel sounds, no guarding, no rebound, no masses. No hepatomegaly or splenomegaly. MUSCULOSKELETAL: Normal range of motion at all joints. No bony deformities or tenderness. No CVA tenderness. UPPER EXTREMITIES: 2+ pulses, warm, well-perfused. No cyanosis. No clubbing. No peripheral edema. LOWER EXTREMITIES: 2+ pulses, warm, well-perfused. No calf tenderness. No peripheral edema. NEUROLOGICAL: R nasolabial flattening and incomplete elevation on CN exam. PERRL, EOMI, symmetrical elevation of eyebrows. Shoulder shrug weaker on the right. CN 2-12 otherwise intact. RUE 5-/5 strength, LUE 5/5 strength, RLE 4+/5 strength hip flexion/extension, knee flexion/extension, LLE strength 5/5 throughout, sensation intact throughout, reflexes 2+ at b/l biceps, patellar, ankle, No pronator drift. Pt had difficulty with dysdiadochokenesia of R hand, R heel to li, and had R dysmetria. PSYCHIATRIC: Cooperative. Good eye contact. Appropriate mood and affect. SKIN: Warm, dry, normal turgor, no rashes or lesions noted, normal capillary refill. CBCD WBC 9.5 K/mm3 (4.0-10.0) 02/19/19 11:00 RBC 5.62 M/mm3 (4.00-5.60) H 02/19/19 11:00 Hgb 16.8 GM/dL (11.7-16.9) 02/19/19 11:00 Hct 50.1 % (35.4-49) H D 02/19/19 11:00 MCV 89.2 fl (80-96) 02/19/19 11:00 MCHC 33.5 g/dl (32.0-35.9) 02/19/19 11:00 RDW 14.1 % (11.9-15.9) 02/19/19 11:00 Plt Count 229 K/MM3 (134-434) 02/19/19 11:00 MPV 8.8 fl (7.5-11.1) 02/19/19 11:00 CMP Sodium 141 mmol/L (136-145) 02/17/19 07:00 Potassium 4.1 mmol/L (3.5-5.1) 02/17/19 07:00 Chloride 108 mmol/L (98-107) H 02/17/19 07:00 Carbon Dioxide 27 mmol/L (21-32) 02/17/19 07:00 Anion Gap 6 MMOL/L (8-16) L 02/17/19 07:00 BUN 11.2 mg/dL (7-18) 02/17/19 07:00 Creatinine 1.2 mg/dL (0.55-1.3) 02/17/19 07:00 Random Glucose 100 mg/dL (74-106) 02/17/19 07:00 Calcium 8.8 mg/dL (8.5-10.1) 02/17/19 07:00 Total Bilirubin 0.3 mg/dL (0.2-1) 02/17/19 07:00 AST 28 U/L (15-37) 02/17/19 07:00 ALT 38 U/L (13-61) 02/17/19 07:00 Alkaline Phosphatase 105 U/L (45-117) 02/17/19 07:00 Total Protein 7.2 g/dl (6.4-8.2) 02/17/19 07:00 Albumin 4.1 g/dl (3.4-5.0) 02/17/19 07:00 CARDIAC ENZYMES Creatine Kinase 222 U/L (26-308) 02/17/19 13:20 Troponin I < 0.02 ng/ml (0.00-0.05) 02/17/19 13:20 ASSESSMENT/PLAN: 63 y/o M with no known medical history who has not seen a doctor "since he was born". He stated that he was in his usual state of health until last night, night prior to admission when he woke around 2 am to urinate. He stated he suddenly felt weakness of the right leg and stumbled. He went to his bedroom and sat on his bed. He then stood and again felt weakness of the right leg and stumbled. He believed this to be the result of feeling sleepy as he just woke up. He drove himself to a friend's house and on seeing him, his friend insisted on coming to the doctor. Head CT showed mild to moderate volume loss without acute changes. Head/Neck CTA howed tiny calcified plaque in the left common bifurcation without hemodynamic significant stenosis. Carotid doppler completed with mild thickening of the common bifurcation bilaterally without hemodynamic significant stenosis. Echocardiogram completed with EF 55-60%, mild mirtal and tricuspid regurgitation. Will need MRI brain to evaluate further and not yet completed. Reports improved strength in RLE. LDL checked and in normal range, therefore would not require statin. Work up otherwise completed. Physical therapy as tolerated. Consider short term rehab if patient amenable. Fall precautions needed. ASA 81mg daily for now, not on antiplalet at home. Monitor blood pressure, maintain < 140/90. Facial droop and leg weakness improving. Goal < 140/90 as outpatient. DVT ppx.
[2019-02-19 11:41] LABS: ALBUMIN 4.2 g/dl (3.4-5.0); BLOOD UREA NITROGEN 17.2 mg/dL (7-18); CALCIUM 9.6 mg/dL (8.5-10.1); CREATININE 1.1 mg/dL (0.55-1.3); PHOSPHOROUS 4.2 mg/dL (2.5-4.9)
[2019-02-20 06:33] LABS: BASO % 0.7 % (0-2.0); EOS % 1.3 % (0-4.5); HEMATOCRIT 45.2 % (35.4-49); HEMOGLOBIN 15.4 GM/dL (11.7-16.9); LYMPH % 23.2 % (8-40); MCH 30.4 pg (25.7-33.7); MCHC 34.1 g/dl (32.0-35.9); MEAN CELL VOLUME 89.3 fl (80-96); MEAN PLT VOLUME 9.2 fl (7.5-11.1); MONO % 12.8 % (3.8-10.2); PLATELET COUNT 213 K/MM3 (134-434); RBC 5.06 M/mm3 (4.00-5.60); RDW 14.2 % (11.9-15.9); WHITE BLOOD COUNT 6.4 K/mm3 (4.0-10.0)
[2019-02-20 06:39] LABS: CREATININE 1.2 mg/dL (0.55-1.3); MAGNESIUM 2.4 mg/dL (1.8-2.4); POTASSIUM 3.9 mmol/L (3.5-5.1)
[2019-02-20 06:40] LABS: BLOOD UREA NITROGEN 16.6 mg/dL (7-18)
--- NOTE | 2019-02-20 09:26 | PN ---
Progress Note (short form) - Note Progress Note: Neurology HISTORY OF PRESENT ILLNESS: Pt is a 63 y/o M with no known medical history who has not seen a doctor "since he was born". He stated that he was in his usual state of health until last night, night prior to admission when he woke around 2 am to urinate. He stated he suddenly felt weakness of the right leg and stumbled. He went to his bedroom and sat on his bed. He then stood and again felt weakness of the right leg and stumbled. He believed this to be the result of feeling sleepy as he just woke up. He drove himself to a friend's house and on seeing him, his friend insisted on coming to the doctor. Head CT showed mild to moderate volume loss without acute changes. Head/Neck CTA howed tiny calcified plaque in the left common bifurcation without hemodynamic significant stenosis. Carotid doppler completed with mild thickening of the common bifurcation bilaterally without hemodynamic significant stenosis. Echocardiogram completed with EF 55-60%, mild mirtal and tricuspid regurgitation. Will need MRI brain to evaluate further and not yet completed. Reports improved strength in RLE. LDL checked and in normal range, therefore would not require statin. Still awaiting MRI, hospitalist notes reviewed. Active Medications Amlodipine Besylate (Norvasc -) 10 mg PO DAILY [facility] Aspirin (Ecotrin -) 81 mg PO DAILY [facility] Last Admin: 02/19/19 09:25 Dose: 81 mg PHYSICAL EXAMINATION Vital Signs Period Temp Pulse Resp BP Sys/Li Pulse Ox Last 24 Hr 98 F-98.6 F 57-78 17-26 146-185/11-126 98-98 GENERAL: Awake, alert, and fully oriented, in no acute distress. HEAD: Normal with no signs of trauma. EYES: Pupils equal, round and reactive to light, extraocular movements intact, sclera anicteric, conjunctiva clear. No lid lag. EARS, NOSE, THROAT: Ears normal, nares patent, oropharynx clear without exudates. Moist mucous membranes. NECK: Normal range of motion, supple without lymphadenopathy, JVD, or masses. LUNGS: Breath sounds equal, clear to auscultation bilaterally. No wheezes, and no crackles. No accessory muscle use. HEART: Regular rate and rhythm, normal S1 and S2 without murmur, rub or gallop. ABDOMEN: Soft, nontender, not distended, normoactive bowel sounds, no guarding, no rebound, no masses. No hepatomegaly or splenomegaly. MUSCULOSKELETAL: Normal range of motion at all joints. No bony deformities or tenderness. No CVA tenderness. UPPER EXTREMITIES: 2+ pulses, warm, well-perfused. No cyanosis. No clubbing. No peripheral edema. LOWER EXTREMITIES: 2+ pulses, warm, well-perfused. No calf tenderness. No peripheral edema. NEUROLOGICAL: R nasolabial flattening and incomplete elevation on CN exam. PERRL, EOMI, symmetrical elevation of eyebrows. Shoulder shrug weaker on the right. CN 2-12 otherwise intact. RUE 5-/5 strength, LUE 5/5 strength, RLE 4+/5 strength hip flexion/extension, knee flexion/extension, LLE strength 5/5 throughout, sensation intact throughout, reflexes 2+ at b/l biceps, patellar, ankle, No pronator drift. Pt had difficulty with dysdiadochokenesia of R hand, R heel to li, and had R dysmetria. PSYCHIATRIC: Cooperative. Good eye contact. Appropriate mood and affect. SKIN: Warm, dry, normal turgor, no rashes or lesions noted, normal capillary refill. CBCD WBC 9.5 K/mm3 (4.0-10.0) 02/19/19 11:00 RBC 5.62 M/mm3 (4.00-5.60) H 02/19/19 11:00 Hgb 16.8 GM/dL (11.7-16.9) 02/19/19 11:00 Hct 50.1 % (35.4-49) H D 02/19/19 11:00 MCV 89.2 fl (80-96) 02/19/19 11:00 MCHC 33.5 g/dl (32.0-35.9) 02/19/19 11:00 RDW 14.1 % (11.9-15.9) 02/19/19 11:00 Plt Count 229 K/MM3 (134-434) 02/19/19 11:00 MPV 8.8 fl (7.5-11.1) 02/19/19 11:00 CMP Sodium 141 mmol/L (136-145) 02/17/19 07:00 Potassium 4.1 mmol/L (3.5-5.1) 02/17/19 07:00 Chloride 108 mmol/L (98-107) H 02/17/19 07:00 Carbon Dioxide 27 mmol/L (21-32) 02/17/19 07:00 Anion Gap 6 MMOL/L (8-16) L 02/17/19 07:00 BUN 11.2 mg/dL (7-18) 02/17/19 07:00 Creatinine 1.2 mg/dL (0.55-1.3) 02/17/19 07:00 Random Glucose 100 mg/dL (74-106) 02/17/19 07:00 Calcium 8.8 mg/dL (8.5-10.1) 02/17/19 07:00 Total Bilirubin 0.3 mg/dL (0.2-1) 02/17/19 07:00 AST 28 U/L (15-37) 02/17/19 07:00 ALT 38 U/L (13-61) 02/17/19 07:00 Alkaline Phosphatase 105 U/L (45-117) 02/17/19 07:00 Total Protein 7.2 g/dl (6.4-8.2) 02/17/19 07:00 Albumin 4.1 g/dl (3.4-5.0) 02/17/19 07:00 CARDIAC ENZYMES Creatine Kinase 222 U/L (26-308) 02/17/19 13:20 Troponin I < 0.02 ng/ml (0.00-0.05) 02/17/19 13:20 ASSESSMENT/PLAN: Pt is a 63 y/o M with no known medical history who has not seen a doctor "since he was born". He stated that he was in his usual state of health until last night, night prior to admission when he woke around 2 am to urinate. He stated he suddenly felt weakness of the right leg and stumbled. He went to his bedroom and sat on his bed. He then stood and again felt weakness of the right leg and stumbled. He believed this to be the result of feeling sleepy as he just woke up. He drove himself to a friend's house and on seeing him, his friend insisted on coming to the doctor. Head CT showed mild to moderate volume loss without acute changes. Head/Neck CTA howed tiny calcified plaque in the left common bifurcation without hemodynamic significant stenosis. Carotid doppler completed with mild thickening of the common bifurcation bilaterally without hemodynamic significant stenosis. Echocardiogram completed with EF 55-60%, mild mirtal and tricuspid regurgitation. Will need MRI brain to evaluate further and not yet completed. Reports improved strength in RLE. LDL checked and in normal range, therefore would not require statin. Still awaiting MRI, hospitalist notes reviewed.Work up otherwise completed. Physical therapy as tolerated. Consider short term rehab if patient amenable. Fall precautions needed. ASA 81mg daily for now, not on antiplalet at home. Monitor blood pressure, maintain < 140/90. Facial droop and leg weakness improving. Goal < 140/90 as outpatient. DVT ppx.
[2019-02-20] MEDS: amLODIPine BESYLATE 10 MG TABLET (FP) PO SCH (10:32)
[2019-02-20] MEDS: ASPIRIN COATED 81 MG TABLET.EC PO SCH (10:32)
--- NOTE | 2019-02-20 14:46 | PN ---
Physical Exam: SUBJECTIVE: Patient seen and examined; noted MRI order discontinued and reordered. Discussed with admin. 72 hours pending MRI study. Continues to improve; agreeable to to rehab. PT ordered and still no consult completed. 10 sys ROS done and negative aside from HPI OBJECTIVE: Vital Signs Period Temp Pulse Resp BP Sys/Li Pulse Ox Last 24 Hr 98.0 F-98.4 F 59-91 18-24 145-176/93-112 98-100 GENERAL: The patient is awake, alert, and fully oriented, in no acute distress. HEAD: Normal with no signs of trauma. EYES: PERRL, extraocular movements intact, sclera anicteric, conjunctiva clear. No ptosis. ENT: Ears normal, nares patent, oropharynx clear without exudates, moist mucous membranes. NECK: Trachea midline, full range of motion, supple. LUNGS: Breath sounds equal, clear to auscultation bilaterally, no wheezes, no crackles, no accessory muscle use. HEART: Regular rate and rhythm, S1, S2 without murmur, rub or gallop. ABDOMEN: Soft, nontender, nondistended, normoactive bowel sounds, no guarding, no rebound, no hepatosplenomegaly, no masses. EXTREMITIES: 2+ pulses, warm, well-perfused, no edema. NEUROLOGICAL: R-nl flattening noted with R-arm and R-leg drift noted; courtesy driver strength intact. No dysarthria or dysphagia. Did not assess gait-pending PT eval. PSYCH: Normal mood, normal affect. SKIN: Warm, dry, normal turgor, no rashes or lesions noted Laboratory Results - last 24 hr 02/20/19 02/20/19 05:15 05:15 WBC 6.4 RBC 5.06 Hgb 15.4 Hct 45.2 MCV 89.3 MCH 30.4 MCHC 34.1 RDW 14.2 Plt Count 213 MPV 9.2 Absolute Neuts (auto) 3.9 Neutrophils % 62.0 Lymphocytes % 23.2 D Monocytes % 12.8 H Eosinophils % 1.3 D Basophils % 0.7 Nucleated RBC % 0 Sodium 139 Potassium 3.9 Chloride 105 Carbon Dioxide 27 Anion Gap 7 L BUN 16.6 Creatinine 1.2 Est GFR (CKD-EPI)AfAm 75.19 Est GFR (CKD-EPI)NonAf 64.87 Random Glucose 92 Calcium 9.0 Magnesium 2.4 Active Medications Generic Name Dose Route Start Last Admin Trade Name Susy PRN Reason Stop Dose Admin Amlodipine Besylate 10 mg 02/20/19 10:00 02/20/19 10:32 Norvasc - PO 10 mg DAILY [facility] Administration Aspirin 81 mg 02/18/19 10:00 02/20/19 10:32 Ecotrin - PO 81 mg DAILY [facility] Administration ASSESSMENT/PLAN: Patient presents with symptoms suspicious for CVA; they have persisted >24 hours. He is still pending MRI and is on ASA and statin. He is pending neurology consult. Started on amlodipine for HTN. Monitoring on tele. Echo, CT head, carotid dopplers, and angiography reviewed and without significant acute abnormality. Appreciate neurology input in the ongoing management of this patient. Discussed with nursing regarding MRI; Can DC tele; no events for entirety of admission Continue neuro checks Adding on Lisinopril 5mg PO QD Problems include: -R/O CVA -Uncontrolled HTN with allotment for permissive HTN with regard to #1 (Started on Amlodipine, following guidelines for permissive HTN) -Cannabis abuse NOS -Overweight (BMI >25) -Mild valvular disease Visit type - Emergency Visit Emergency Visit: No - New Patient This patient is new to me today: No - Critical Care Critical Care patient: No
[2019-02-20] MEDS ORDERED: LISINOPRIL 5 MG TABLET (FP) PO SCH (16:15)
[2019-02-21] MEDS: amLODIPine BESYLATE 10 MG TABLET (FP) PO SCH (09:01)
[2019-02-21] MEDS: LISINOPRIL 5 MG TABLET (FP) PO SCH (09:01)
[2019-02-21] MEDS: ASPIRIN COATED 81 MG TABLET.EC PO SCH (09:01)
--- NOTE | 2019-02-21 09:01 | PN ---
Progress Note (short form) - Note Progress Note: Neurology HISTORY OF PRESENT ILLNESS: Pt is a 63 y/o M with no known medical history who has not seen a doctor "since he was born". He stated that he was in his usual state of health until last night, night prior to admission when he woke around 2 am to urinate. He stated he suddenly felt weakness of the right leg and stumbled. He went to his bedroom and sat on his bed. He then stood and again felt weakness of the right leg and stumbled. He believed this to be the result of feeling sleepy as he just woke up. He drove himself to a friend's house and on seeing him, his friend insisted on coming to the doctor. Head CT showed mild to moderate volume loss without acute changes. Head/Neck CTA howed tiny calcified plaque in the left common bifurcation without hemodynamic significant stenosis. Carotid doppler completed with mild thickening of the common bifurcation bilaterally without hemodynamic significant stenosis. Echocardiogram completed with EF 55-60%, mild mirtal and tricuspid regurgitation. Will need MRI brain to evaluate further and not yet completed. Reports improved strength in RLE. LDL checked and in normal range, therefore would not require statin. MRI completed, acute left thalamocapsular infarct. hospitalist notes reviewed. rremainder of workup has been completed and patient advised to remain on aspirin daily along with blood pressure control. His blood pressures remain hypertensive and 180/100s this morning. Will require rehabilitation as he reports difficulty with ambulation. Active Medications Amlodipine Besylate (Norvasc -) 10 mg PO DAILY [facility] Last Admin: 02/20/19 10:32 Dose: 10 mg Aspirin (Ecotrin -) 81 mg PO DAILY [facility] Last Admin: 02/20/19 10:32 Dose: 81 mg Lisinopril (Prinivil) 10 mg PO DAILY [facility] PHYSICAL EXAMINATION Vital Signs Period Temp Pulse Resp BP Sys/Li Pulse Ox Last 24 Hr 97.8 F-98.4 F 66-94 16-24 142-178/92-123 100-100 GENERAL: Awake, alert, and fully oriented, in no acute distress. HEAD: Normal with no signs of trauma. EYES: Pupils equal, round and reactive to light, extraocular movements intact, sclera anicteric, conjunctiva clear. No lid lag. EARS, NOSE, THROAT: Ears normal, nares patent, oropharynx clear without exudates. Moist mucous membranes. NECK: Normal range of motion, supple without lymphadenopathy, JVD, or masses. LUNGS: Breath sounds equal, clear to auscultation bilaterally. No wheezes, and no crackles. No accessory muscle use. HEART: Regular rate and rhythm, normal S1 and S2 without murmur, rub or gallop. ABDOMEN: Soft, nontender, not distended, normoactive bowel sounds, no guarding, no rebound, no masses. No hepatomegaly or splenomegaly. MUSCULOSKELETAL: Normal range of motion at all joints. No bony deformities or tenderness. No CVA tenderness. UPPER EXTREMITIES: 2+ pulses, warm, well-perfused. No cyanosis. No clubbing. No peripheral edema. LOWER EXTREMITIES: 2+ pulses, warm, well-perfused. No calf tenderness. No peripheral edema. NEUROLOGICAL: R nasolabial flattening and incomplete elevation on CN exam. PERRL, EOMI, symmetrical elevation of eyebrows. Shoulder shrug weaker on the right. CN 2-12 otherwise intact. RUE 5-/5 strength, LUE 5/5 strength, RLE 4+/5 strength hip flexion/extension, knee flexion/extension, LLE strength 5/5 throughout, sensation intact throughout, reflexes 2+ at b/l biceps, patellar, ankle, No pronator drift. Pt had difficulty with dysdiadochokenesia of R hand, R heel to li, and had R dysmetria. PSYCHIATRIC: Cooperative. Good eye contact. Appropriate mood and affect. SKIN: Warm, dry, normal turgor, no rashes or lesions noted, normal capillary refill. CBCD WBC 6.4 K/mm3 (4.0-10.0) 02/20/19 05:15 RBC 5.06 M/mm3 (4.00-5.60) 02/20/19 05:15 Hgb 15.4 GM/dL (11.7-16.9) 02/20/19 05:15 Hct 45.2 % (35.4-49) 02/20/19 05:15 MCV 89.3 fl (80-96) 02/20/19 05:15 MCHC 34.1 g/dl (32.0-35.9) 02/20/19 05:15 RDW 14.2 % (11.9-15.9) 02/20/19 05:15 Plt Count 213 K/MM3 (134-434) 02/20/19 05:15 MPV 9.2 fl (7.5-11.1) 02/20/19 05:15 CMP Sodium 139 mmol/L (136-145) 02/20/19 05:15 Potassium 3.9 mmol/L (3.5-5.1) 02/20/19 05:15 Chloride 105 mmol/L (98-107) 02/20/19 05:15 Carbon Dioxide 27 mmol/L (21-32) 02/20/19 05:15 Anion Gap 7 MMOL/L (8-16) L 02/20/19 05:15 BUN 16.6 mg/dL (7-18) 02/20/19 05:15 Creatinine 1.2 mg/dL (0.55-1.3) 02/20/19 05:15 Calcium 9.0 mg/dL (8.5-10.1) 02/20/19 05:15 Total Bilirubin 0.3 mg/dL (0.2-1) 02/17/19 07:00 AST 28 U/L (15-37) 02/17/19 07:00 ALT 38 U/L (13-61) 02/17/19 07:00 Alkaline Phosphatase 105 U/L (45-117) 02/17/19 07:00 Total Protein 7.2 g/dl (6.4-8.2) 02/17/19 07:00 Albumin 4.2 g/dl (3.4-5.0) 02/19/19 11:00 ASSESSMENT/PLAN: Pt is a 63 y/o M with no known medical history who has not seen a doctor "since he was born". He stated that he was in his usual state of health until last night, night prior to admission when he woke around 2 am to urinate. He stated he suddenly felt weakness of the right leg and stumbled. He went to his bedroom and sat on his bed. He then stood and again felt weakness of the right leg and stumbled. He believed this to be the result of feeling sleepy as he just woke up. He drove himself to a friend's house and on seeing him, his friend insisted on coming to the doctor. Head CT showed mild to moderate volume loss without acute changes. Head/Neck CTA howed tiny calcified plaque in the left common bifurcation without hemodynamic significant stenosis. Carotid doppler completed with mild thickening of the common bifurcation bilaterally without hemodynamic significant stenosis. Echocardiogram completed with EF 55-60%, mild mirtal and tricuspid regurgitation. Will need MRI brain to evaluate further and not yet completed. Reports improved strength in RLE. LDL checked and in normal range, therefore would not require statin. MRI completed, acute left thalamocapsular infarct. rremainder of workup has been completed and patient advised to remain on aspirin daily along with blood pressure control. His blood pressures remain hypertensive and 180/100s this morning. Will require rehabilitation as he reports difficulty with ambulation. Physical therapy as tolerated. Fall precautions needed. ASA 81mg daily for now, not on antiplalet at home. Monitor blood pressure, maintain < 140/90. DVT ppx, placement as per machine adjuster leader case trim
--- NOTE | 2019-02-21 10:09 | PN ---
Teaching Attending Note Name of Resident: Liam Cabrera ATTENDING PHYSICIAN STATEMENT I saw and evaluated the patient. I reviewed the resident's note and discussed the case with the resident. I agree with the resident's findings and plan as documented. Seen and examined; MRI with acute thalamic stroke. Lack of insurance limits ability to go to inpatient rehab. He is agreeable so we will coordinate home services and discharge him home with PT. He did ambulate appropriately, etc, and states he feels safe to go home VS, labs, imaging reviewed NAD, AAO, resting in bed NC AT EOMI PERRLA RRR s1/2 NT ND +BS Slightly improved RUE/RLE drift with no changes in sensorium, relflexes. Noted nasolabial flattening somewhat improved. Normal mood, appropriate affect, competent to make own decisions MRI report per EMR Reviewed tele Reviewed neurology consult Hospital Course: He was admitted for RUE/RLE weakness and same sided nasolabial flattening; found to have acute thalamic infarct on MRI. Echo, duplex, and CTA were without findings spurring acute intervention. Tele was monitored. He has uncontrolled HTN that is much improved and will be discharged on Lisinopril 10mg PO QD and Amlodipine 10mg PO QD. Per neurology he won't be DCd on statin after review of lipids proved acceptable. I defer to them. ASA 81mg PO QD continued on DC. Followup: -PCP (referred to resident clinic) 3-5 days -Neuro 1-2 weeks Diet: -Resume home diet; low fat low salt/DASH encouraged Activity: Home with PT Full Code 33 mins.
--- NOTE | 2019-02-21 14:13 | DS ---
Physical Exam: SUBJECTIVE: Patient seen and examined OBJECTIVE: Vital Signs Period Temp Pulse Resp BP Sys/Li Pulse Ox Last 24 Hr 97.8 F-98.3 F 72-94 14-24 142-182/92-123 100-100 PHYSICAL EXAM GENERAL: The patient is awake, alert, and fully oriented, in no acute distress. HEAD: Normal with no signs of trauma. EYES: PERRL, extraocular movements intact, sclera anicteric, conjunctiva clear. ENT: Ears normal, nares patent, oropharynx clear without exudates, moist mucous membranes. NECK: Trachea midline, full range of motion, supple. LUNGS: Breath sounds equal, clear to auscultation bilaterally, no wheezes, no crackles, no accessory muscle use. HEART: Regular rate and rhythm, S1, S2 without murmur, rub or gallop. ABDOMEN: Soft, nontender, nondistended, normoactive bowel sounds, no guarding, no rebound, no hepatosplenomegaly, no masses. EXTREMITIES: 2+ pulses, warm, well-perfused, no edema. NEUROLOGICAL: Cranial nerves II through XII grossly intact. Normal speech, gait not observed. PSYCH: Normal mood, normal affect. SKIN: Warm, dry, normal turgor, no rashes or lesions noted. LABS HOSPITAL COURSE: Date of Admission:02/17/19 Date of Discharge: 02/21/19 Discharge Summary Reason For Visit: CVA Current Active Problems Cerebrovascular accident (CVA) (Acute) Condition: Improved - Instructions Diet, Activity, Other Instructions: You were seen for a stroke. You were placed on some medications to help. Please follow-up with Dr. May (neurologist) in 2 weeks for long-term stroke care Please follow-up with Dr. Thao in the next 3-4 days to establish a primary care doctor. Referrals: Andreas Thao MD [Staff Physician] - (3-5 days with any resident) Yaakov May MD [Staff Physician] - 2 Weeks () Disposition: HOME - Home Medications Comprehensive Discharge Medication List: Ambulatory Orders Amlodipine Besylate [Norvasc -] 10 mg PO DAILY 30 Days tablet 02/20/19 Aspirin Coated [Ecotrin -] 81 mg PO DAILY 30 Days tablet.ec 02/20/19 Lisinopril [Prinivil] 10 mg PO DAILY 30 Days #30 tablet 02/21/19 ATTENDING PHYSICIAN STATEMENT I saw and evaluated the patient. I reviewed the resident's note and discussed the case with the resident. I agree with the resident's findings and plan as documented. SUBJECTIVE: OBJECTIVE: ASSESSMENT AND PLAN:
[2019-02-21] MEDS ORDERED: LABETALOL HCL 5 MG/1 ML (100MG/20 ML VIAL) IVPUSH ONE ×2 (18:27→22:30)
--- NOTE | 2019-02-21 21:07 | HOSP ---
Subjective - Review of Symptoms Events since last encounter: 63 y/o M with no known medical history, admitted for RUE/RLE weakness, during the course of hospitalization, Head CT showed mild to moderate volume loss without acute changes. Head/Neck CTA howed tiny calcified plaque in the left common bifurcation without hemodynamic significant stenosis. Carotid doppler completed with mild thickening of the common bifurcation bilaterally without hemodynamic significant stenosis. Echocardiogram completed with EF 55-60%, mild mirtal and tricuspid regurgitation. MRI found to have acute thalamic infarct on MRI. Patient was due to discharge today to home, nursing called hosptialist for evulation of unsafe discahrge as patient cant ambulate self, nor has family assistance at home. Patient was initially scheduled for rehabilitation. Patient was asked upon exam did you walk by self in morning, " I can not even get up from sitting without assistance", as per rehab notes requires assistance of 2 person. Patient leave alone does not have any help. Will have social/cyanide case hardener follow up in Am and work on proper discharge plan. Physical Examination Vital Signs: Labs:
--- NOTE | 2019-02-22 08:10 | PN ---
Physical Exam: SUBJECTIVE: Patient seen and examined, still with right sided weakness, reports unable to ambulate or address ADLs currently. No headache, chest pain or new concerns. OBJECTIVE: Vital Signs Period Temp Pulse Resp BP Sys/Li Pulse Ox Last 24 Hr 97.1 F-98.1 F 66-97 14-24 127-189/74-130 100-100 Intake & Output 02/19/19 02/20/19 02/21/19 02/22/19 23:59 23:59 23:59 23:59 Intake Total 300 430 200 Output Total 600 2100 1300 400 Balance -300 -2100 -870 -200 general: sitting in chair, no acute distress Neck: soft, supple, no JVD Chest: CTAB, no rales or wheezing Abdomen: soft, NT, ND, pos bowel sounds Extremities: no edema Neuro: AAOX3, right nasolabial fold flattening, RUE 5-/5, LUE 5/5, RLE 4/5, LLE 5/5, speech normal, right shoulder shrug weak Home Medications Medication Instructions Recorded Amlodipine Besylate [Norvasc -] 10 mg PO DAILY 30 Days tablet 02/20/19 Aspirin Coated [Ecotrin -] 81 mg PO DAILY 30 Days tablet.ec 02/20/19 Lisinopril [Prinivil] 10 mg PO DAILY 30 Days #30 tablet 02/21/19 Active Medications Generic Name Dose Route Start Last Admin Trade Name Jonathanq PRN Reason Stop Dose Admin Amlodipine Besylate 10 mg 02/20/19 10:00 02/21/19 09:01 Norvasc - PO 10 mg DAILY [facility] Administration Aspirin 81 mg 02/18/19 10:00 02/21/19 09:01 Ecotrin - PO 81 mg DAILY [facility] Administration Lisinopril 10 mg 02/21/19 07:41 02/21/19 09:01 Prinivil PO 10 mg DAILY [facility] Administration MRI brain/Carotid duplex/CTA head/neck/2D echo results reviewed ASSESSMENT/PLAN: 63 yom with no prior medical follow up admitted with Acute left thalamo- capsular infarct with right sided weakness. 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 BP still elevated. Amlodipine/Lisinopril. Add HCTZ. Lipid panel noted, no need for statin. Neurology input noted. PT eval Overnight events noted, discuss with social work for disposition planning. Discussed with patient. Will follow up. Home d/c with outpatient follow up, likely in 24 hours. Visit type - Emergency Visit Emergency Visit: Yes ED Registration Date: 02/17/19 Care time: The patient presented to the Emergency Department on the above date and was hospitalized for further evaluation of their emergent condition. - New Patient This patient is new to me today: Yes Date on this admission: 02/22/19 - Critical Care Critical Care patient: No - Discharge Referral Referred to [facility] Med [facility] No
--- NOTE | 2019-02-22 09:14 | PN ---
Progress Note (short form) - Note Progress Note: Neurology HISTORY OF PRESENT ILLNESS: Pt is a 63 y/o M with no known medical history who has not seen a doctor "since he was born". He stated that he was in his usual state of health until last night, night prior to admission when he woke around 2 am to urinate. He stated he suddenly felt weakness of the right leg and stumbled. He went to his bedroom and sat on his bed. He then stood and again felt weakness of the right leg and stumbled. He believed this to be the result of feeling sleepy as he just woke up. He drove himself to a friend's house and on seeing him, his friend insisted on coming to the doctor. Head CT showed mild to moderate volume loss without acute changes. Head/Neck CTA howed tiny calcified plaque in the left common bifurcation without hemodynamic significant stenosis. Carotid doppler completed with mild thickening of the common bifurcation bilaterally without hemodynamic significant stenosis. Echocardiogram completed with EF 55-60%, mild mirtal and tricuspid regurgitation. Will need MRI brain to evaluate further and not yet completed. Reports improved strength in RLE. LDL checked and in normal range, therefore would not require statin. MRI completed, acute left thalamocapsular infarct. hospitalist notes reviewed. Remainder of workup has been completed and patient advised to remain on aspirin daily along with blood pressure control. Will require rehabilitation as he reports difficulty with ambulation. Possibly for [facility] placement and rehab. Is utilizing his upper and lower extremities on the right with improved strength and asked 30 Has a weighted bag at bedside which she is been using for strengthening his upper extremity. Facial droop remains but has improved as well. Active Medications Amlodipine Besylate (Norvasc -) 10 mg PO DAILY [facility] Last Admin: 02/20/19 10:32 Dose: 10 mg Aspirin (Ecotrin -) 81 mg PO DAILY [facility] Last Admin: 02/20/19 10:32 Dose: 81 mg Lisinopril (Prinivil) 10 mg PO DAILY [facility] PHYSICAL EXAMINATION Vital Signs Period Temp Pulse Resp BP Sys/Li Pulse Ox Last 24 Hr 97.8 F-98.4 F 66-94 16-24 142-178/92-123 100-100 GENERAL: Awake, alert, and fully oriented, in no acute distress. HEAD: Normal with no signs of trauma. EYES: Pupils equal, round and reactive to light, extraocular movements intact, sclera anicteric, conjunctiva clear. No lid lag. EARS, NOSE, THROAT: Ears normal, nares patent, oropharynx clear without exudates. Moist mucous membranes. NECK: Normal range of motion, supple without lymphadenopathy, JVD, or masses. LUNGS: Breath sounds equal, clear to auscultation bilaterally. No wheezes, and no crackles. No accessory muscle use. HEART: Regular rate and rhythm, normal S1 and S2 without murmur, rub or gallop. ABDOMEN: Soft, nontender, not distended, normoactive bowel sounds, no guarding, no rebound, no masses. No hepatomegaly or splenomegaly. MUSCULOSKELETAL: Normal range of motion at all joints. No bony deformities or tenderness. No CVA tenderness. UPPER EXTREMITIES: 2+ pulses, warm, well-perfused. No cyanosis. No clubbing. No peripheral edema. LOWER EXTREMITIES: 2+ pulses, warm, well-perfused. No calf tenderness. No peripheral edema. NEUROLOGICAL: R nasolabial flattening and incomplete elevation on CN exam. PERRL, EOMI, symmetrical elevation of eyebrows. Shoulder shrug weaker on the right. CN 2-12 otherwise intact. RUE 5-/5 strength, LUE 5/5 strength, RLE 4+/5 strength hip flexion/extension, knee flexion/extension, LLE strength 5/5 throughout, sensation intact throughout, reflexes 2+ at b/l biceps, patellar, ankle, No pronator drift. Pt had difficulty with dysdiadochokenesia of R hand, R heel to li, and had R dysmetria. PSYCHIATRIC: Cooperative. Good eye contact. Appropriate mood and affect. SKIN: Warm, dry, normal turgor, no rashes or lesions noted, normal capillary refill. CBCD WBC 6.4 K/mm3 (4.0-10.0) 02/20/19 05:15 RBC 5.06 M/mm3 (4.00-5.60) 02/20/19 05:15 Hgb 15.4 GM/dL (11.7-16.9) 02/20/19 05:15 Hct 45.2 % (35.4-49) 02/20/19 05:15 MCV 89.3 fl (80-96) 02/20/19 05:15 MCHC 34.1 g/dl (32.0-35.9) 02/20/19 05:15 RDW 14.2 % (11.9-15.9) 02/20/19 05:15 Plt Count 213 K/MM3 (134-434) 02/20/19 05:15 MPV 9.2 fl (7.5-11.1) 02/20/19 05:15 CMP Sodium 139 mmol/L (136-145) 02/20/19 05:15 Potassium 3.9 mmol/L (3.5-5.1) 02/20/19 05:15 Chloride 105 mmol/L (98-107) 02/20/19 05:15 Carbon Dioxide 27 mmol/L (21-32) 02/20/19 05:15 Anion Gap 7 MMOL/L (8-16) L 02/20/19 05:15 BUN 16.6 mg/dL (7-18) 02/20/19 05:15 Creatinine 1.2 mg/dL (0.55-1.3) 02/20/19 05:15 Calcium 9.0 mg/dL (8.5-10.1) 02/20/19 05:15 Total Bilirubin 0.3 mg/dL (0.2-1) 02/17/19 07:00 AST 28 U/L (15-37) 02/17/19 07:00 ALT 38 U/L (13-61) 02/17/19 07:00 Alkaline Phosphatase 105 U/L (45-117) 02/17/19 07:00 Total Protein 7.2 g/dl (6.4-8.2) 02/17/19 07:00 Albumin 4.2 g/dl (3.4-5.0) 02/19/19 11:00 ASSESSMENT/PLAN: Pt is a 63 y/o M with no known medical history who has not seen a doctor "since he was born". He stated that he was in his usual state of health until last night, night prior to admission when he woke around 2 am to urinate. He stated he suddenly felt weakness of the right leg and stumbled. He went to his bedroom and sat on his bed. He then stood and again felt weakness of the right leg and stumbled. He believed this to be the result of feeling sleepy as he just woke up. He drove himself to a friend's house and on seeing him, his friend insisted on coming to the doctor. Head CT showed mild to moderate volume loss without acute changes. Head/Neck CTA howed tiny calcified plaque in the left common bifurcation without hemodynamic significant stenosis. Carotid doppler completed with mild thickening of the common bifurcation bilaterally without hemodynamic significant stenosis. Echocardiogram completed with EF 55-60%, mild mirtal and tricuspid regurgitation. Will need MRI brain to evaluate further and not yet completed. Reports improved strength in RLE. LDL checked and in normal range, therefore would not require statin. MRI completed, acute left thalamocapsular infarct. rremainder of workup has been completed and patient advised to remain on aspirin daily along with blood pressure control. His blood pressures remain hypertensive and 180/100s this morning. Will require rehabilitation as he reports difficulty with ambulation. Physical therapy as tolerated. Fall precautions needed. ASA 81mg daily for now, not on antiplalet at home. Monitor blood pressure, maintain < 140/90. DVT ppx, placement as per porter sample case. Patient motivated to participate in therapy, using weighted bag at bedside. Encouragement provided to improve strength as much as possible and advised that the more improvement that occurs early on the better the chances for long-term recovery.
[2019-02-22] MEDS: amLODIPine BESYLATE 10 MG TABLET (FP) PO SCH (09:38)
[2019-02-22] MEDS: ASPIRIN COATED 81 MG TABLET.EC PO SCH (09:38)
[2019-02-22] MEDS: HYDROCHLOROTHIAZIDE 12.5 MG CAPSULE (FP) PO SCH (09:38)
[2019-02-22] MEDS: LISINOPRIL 5 MG TABLET (FP) PO SCH (09:38)
[2019-02-23] MEDS ORDERED: PT OWN MED DRAWER 7, Y5N ONE (08:46)
--- NOTE | 2019-02-23 09:09 | PN ---
Progress Note (short form) - Note Progress Note: Neurology HISTORY OF PRESENT ILLNESS: Pt is a 63 y/o M with no known medical history who has not seen a doctor "since he was born". He stated that he was in his usual state of health until last night, night prior to admission when he woke around 2 am to urinate. He stated he suddenly felt weakness of the right leg and stumbled. He went to his bedroom and sat on his bed. He then stood and again felt weakness of the right leg and stumbled. He believed this to be the result of feeling sleepy as he just woke up. He drove himself to a friend's house and on seeing him, his friend insisted on coming to the doctor. Head CT showed mild to moderate volume loss without acute changes. Head/Neck CTA howed tiny calcified plaque in the left common bifurcation without hemodynamic significant stenosis. Carotid doppler completed with mild thickening of the common bifurcation bilaterally without hemodynamic significant stenosis. Echocardiogram completed with EF 55-60%, mild mirtal and tricuspid regurgitation. Will need MRI brain to evaluate further and not yet completed. Reports improved strength in RLE. LDL checked and in normal range, therefore would not require statin. MRI completed, acute left thalamocapsular infarct. hospitalist notes reviewed. Remainder of workup has been completed and patient advised to remain on aspirin daily along with blood pressure control. continues to demonstrate improvement in motor status, today sitting in chair and has been utilizing rolling walker. Is motivated to pursue physical therapy at [facility]. Awaiting transfer. Active Medications Amlodipine Besylate (Norvasc -) 10 mg PO DAILY [facility] Last Admin: 02/22/19 09:38 Dose: 10 mg Aspirin (Ecotrin -) 81 mg PO DAILY [facility] Last Admin: 02/22/19 09:38 Dose: 81 mg Hydrochlorothiazide (Hctz -) 12.5 mg PO DAILY [facility] Last Admin: 02/22/19 09:38 Dose: 12.5 mg Lisinopril (Prinivil) 10 mg PO DAILY [facility] Last Admin: 02/22/19 09:38 Dose: 10 mg PHYSICAL EXAMINATION Vital Signs Period Temp Pulse Resp BP Sys/Li Pulse Ox Last 24 Hr 97.9 F-98.3 F 81-941 20-22 140-162/84-98 95 GENERAL: Awake, alert, and fully oriented, in no acute distress. HEAD: Normal with no signs of trauma. EYES: Pupils equal, round and reactive to light, extraocular movements intact, sclera anicteric, conjunctiva clear. No lid lag. EARS, NOSE, THROAT: Ears normal, nares patent, oropharynx clear without exudates. Moist mucous membranes. NECK: Normal range of motion, supple without lymphadenopathy, JVD, or masses. LUNGS: Breath sounds equal, clear to auscultation bilaterally. No wheezes, and no crackles. No accessory muscle use. HEART: Regular rate and rhythm, normal S1 and S2 without murmur, rub or gallop. ABDOMEN: Soft, nontender, not distended, normoactive bowel sounds, no guarding, no rebound, no masses. No hepatomegaly or splenomegaly. MUSCULOSKELETAL: Normal range of motion at all joints. No bony deformities or tenderness. No CVA tenderness. UPPER EXTREMITIES: 2+ pulses, warm, well-perfused. No cyanosis. No clubbing. No peripheral edema. LOWER EXTREMITIES: 2+ pulses, warm, well-perfused. No calf tenderness. No peripheral edema. NEUROLOGICAL: R nasolabial flattening and incomplete elevation on CN exam. PERRL, EOMI, symmetrical elevation of eyebrows. Shoulder shrug weaker on the right. CN 2-12 otherwise intact. RUE 5-/5 strength, LUE 5/5 strength, RLE 4+/5 strength hip flexion/extension, knee flexion/extension, LLE strength 5/5 throughout, sensation intact throughout, reflexes 2+ at b/l biceps, patellar, ankle, No pronator drift. Pt had difficulty with dysdiadochokenesia of R hand, R heel to li, and had R dysmetria. PSYCHIATRIC: Cooperative. Good eye contact. Appropriate mood and affect. SKIN: Warm, dry, normal turgor, no rashes or lesions noted, normal capillary refill. CBCD WBC 6.4 K/mm3 (4.0-10.0) 02/20/19 05:15 RBC 5.06 M/mm3 (4.00-5.60) 02/20/19 05:15 Hgb 15.4 GM/dL (11.7-16.9) 02/20/19 05:15 Hct 45.2 % (35.4-49) 02/20/19 05:15 MCV 89.3 fl (80-96) 02/20/19 05:15 MCHC 34.1 g/dl (32.0-35.9) 02/20/19 05:15 RDW 14.2 % (11.9-15.9) 02/20/19 05:15 Plt Count 213 K/MM3 (134-434) 02/20/19 05:15 MPV 9.2 fl (7.5-11.1) 02/20/19 05:15 CMP Sodium 139 mmol/L (136-145) 02/20/19 05:15 Potassium 3.9 mmol/L (3.5-5.1) 02/20/19 05:15 Chloride 105 mmol/L (98-107) 02/20/19 05:15 Carbon Dioxide 27 mmol/L (21-32) 02/20/19 05:15 Anion Gap 7 MMOL/L (8-16) L 02/20/19 05:15 BUN 16.6 mg/dL (7-18) 02/20/19 05:15 Creatinine 1.2 mg/dL (0.55-1.3) 02/20/19 05:15 Random Glucose 92 mg/dL (74-106) 02/20/19 05:15 Calcium 9.0 mg/dL (8.5-10.1) 02/20/19 05:15 Total Bilirubin 0.3 mg/dL (0.2-1) 02/17/19 07:00 AST 28 U/L (15-37) 02/17/19 07:00 ALT 38 U/L (13-61) 02/17/19 07:00 Alkaline Phosphatase 105 U/L (45-117) 02/17/19 07:00 Total Protein 7.2 g/dl (6.4-8.2) 02/17/19 07:00 Albumin 4.2 g/dl (3.4-5.0) 02/19/19 11:00 CARDIAC ENZYMES Creatine Kinase 222 U/L (26-308) 02/17/19 13:20 Troponin I < 0.02 ng/ml (0.00-0.05) 02/17/19 13:20 ASSESSMENT/PLAN: Pt is a 63 y/o M with no known medical history who has not seen a doctor "since he was born". He stated that he was in his usual state of health until last night, night prior to admission when he woke around 2 am to urinate. He stated he suddenly felt weakness of the right leg and stumbled. He went to his bedroom and sat on his bed. He then stood and again felt weakness of the right leg and stumbled. He believed this to be the result of feeling sleepy as he just woke up. He drove himself to a friend's house and on seeing him, his friend insisted on coming to the doctor. Head CT showed mild to moderate volume loss without acute changes. Head/Neck CTA howed tiny calcified plaque in the left common bifurcation without hemodynamic significant stenosis. Carotid doppler completed with mild thickening of the common bifurcation bilaterally without hemodynamic significant stenosis. Echocardiogram completed with EF 55-60%, mild mirtal and tricuspid regurgitation. Will need MRI brain to evaluate further and not yet completed. Reports improved strength in RLE. LDL checked and in normal range, therefore would not require statin. MRI completed, acute left thalamocapsular infarct. rremainder of workup has been completed and patient advised to remain on aspirin daily along with blood pressure control. His blood pressures remain hypertensive and 180/100s this morning. Will require rehabilitation as he reports difficulty with ambulation. Physical therapy as tolerated. Fall precautions needed. ASA 81mg daily for now, not on antiplalet at home. Monitor blood pressure, maintain < 140/90. DVT ppx, continues to demonstrate improvement in motor status, today sitting in chair and has been utilizing rolling walker. Is motivated to pursue physical therapy at [facility]. Awaiting transfer.
[2019-02-23] MEDS: ASPIRIN COATED 81 MG TABLET.EC PO SCH (09:47)
[2019-02-23] MEDS: HYDROCHLOROTHIAZIDE 12.5 MG CAPSULE (FP) PO SCH (09:47)
[2019-02-23] MEDS: LISINOPRIL 5 MG TABLET (FP) PO SCH (09:47)
--- NOTE | 2019-02-23 11:01 | PN ---
Physical Exam: SUBJECTIVE: Patient seen and examined, right sided weakness stable, no new complaints. OBJECTIVE: Vital Signs Period Temp Pulse Resp BP Sys/Li Pulse Ox Last 24 Hr 97.9 F-98.3 F 81-941 17-22 135-162/84-98 95-98 Intake & Output 02/20/19 02/21/19 02/22/19 02/23/19 23:59 23:59 23:59 23:59 Intake Total 430 970 170 Output Total 2100 1300 900 750 Balance -2100 -870 70 -580 general: sitting in chair, no acute distress Neck: soft, supple, no JVD Chest: CTAB, no rales or wheezing Abdomen: soft, NT, ND, pos bowel sounds Extremities: no edema Neuro: AAOX3, right nasolabial fold flattening, RUE 5-/5, LUE 5/5, RLE 4/5, LLE 5/5, speech normal, right shoulder shrug weak Psych: good spirits, actively exercising right side Active Medications Generic Name Dose Route Start Last Admin Trade Name Susy PRN Reason Stop Dose Admin Amlodipine Besylate 10 mg 02/20/19 10:00 02/22/19 09:38 Norvasc - PO 10 mg DAILY [facility] Administration Aspirin 81 mg 02/18/19 10:00 02/23/19 09:47 Ecotrin - PO 81 mg DAILY [facility] Administration Hydrochlorothiazide 12.5 mg 02/22/19 10:00 02/23/19 09:47 Hctz - PO 12.5 mg DAILY [facility] Administration Lisinopril 10 mg 02/21/19 07:41 02/23/19 09:47 Prinivil PO 10 mg DAILY [facility] Administration ASSESSMENT/PLAN: 63 yom with no prior medical follow up admitted with Acute left thalamo- capsular infarct with right sided weakness. 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 BP improved, continue lisinopril/HCTZ/amlodipine. Lipid panel noted, no need for statin. Neurology input noted. PT eval noted Social work input noted, case discussed, possible acute rehab vs home PT when arrangements done. Discussed with patient and nursing. Visit type - Emergency Visit Emergency Visit: Yes ED Registration Date: 02/17/19 Care time: The patient presented to the Emergency Department on the above date and was hospitalized for further evaluation of their emergent condition. - New Patient This patient is new to me today: No - Critical Care Critical Care patient: No - Discharge Referral Referred to [facility] No
[2019-02-23] MEDS: amLODIPine BESYLATE 10 MG TABLET (FP) PO SCH (11:26)
--- NOTE | 2019-02-24 08:39 | PN ---
Progress Note (short form) - Note Progress Note: Neurology HISTORY OF PRESENT ILLNESS: Pt is a 63 y/o M with no known medical history who has not seen a doctor "since he was born". He stated that he was in his usual state of health until last night, night prior to admission when he woke around 2 am to urinate. He stated he suddenly felt weakness of the right leg and stumbled. He went to his bedroom and sat on his bed. He then stood and again felt weakness of the right leg and stumbled. He believed this to be the result of feeling sleepy as he just woke up. He drove himself to a friend's house and on seeing him, his friend insisted on coming to the doctor. Head CT showed mild to moderate volume loss without acute changes. Head/Neck CTA howed tiny calcified plaque in the left common bifurcation without hemodynamic significant stenosis. Carotid doppler completed with mild thickening of the common bifurcation bilaterally without hemodynamic significant stenosis. Echocardiogram completed with EF 55-60%, mild mirtal and tricuspid regurgitation. Will need MRI brain to evaluate further and not yet completed. Reports improved strength in RLE. LDL checked and in normal range, therefore would not require statin. MRI completed, acute left thalamocapsular infarct. hospitalist notes reviewed. Remainder of workup has been completed and patient advised to remain on aspirin daily along with blood pressure control. continues to demonstrate improvement in motor status, increased strength in right upper and right lower extremities but would still benefit from rehabilitation. 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 Active Medications Amlodipine Besylate (Norvasc -) 10 mg PO DAILY [facility] Last Admin: 02/23/19 11:26 Dose: 10 mg Aspirin (Ecotrin -) 81 mg PO DAILY [facility] Last Admin: 02/23/19 09:47 Dose: 81 mg Hydrochlorothiazide (Hctz -) 12.5 mg PO DAILY [facility] Last Admin: 02/23/19 09:47 Dose: 12.5 mg Lisinopril (Prinivil) 10 mg PO DAILY [facility] Last Admin: 02/23/19 09:47 Dose: 10 mg PHYSICAL EXAMINATION Vital Signs Period Temp Pulse Resp BP Sys/Li Pulse Ox Last 24 Hr 98.0 F-98.3 F 91-111 17-24 117-154/74-94 97-98 GENERAL: Awake, alert, and fully oriented, in no acute distress. HEAD: Normal with no signs of trauma. EYES: Pupils equal, round and reactive to light, extraocular movements intact, sclera anicteric, conjunctiva clear. No lid lag. EARS, NOSE, THROAT: Ears normal, nares patent, oropharynx clear without exudates. Moist mucous membranes. NECK: Normal range of motion, supple without lymphadenopathy, JVD, or masses. LUNGS: Breath sounds equal, clear to auscultation bilaterally. No wheezes, and no crackles. No accessory muscle use. HEART: Regular rate and rhythm, normal S1 and S2 without murmur, rub or gallop. ABDOMEN: Soft, nontender, not distended, normoactive bowel sounds, no guarding, no rebound, no masses. No hepatomegaly or splenomegaly. MUSCULOSKELETAL: Normal range of motion at all joints. No bony deformities or tenderness. No CVA tenderness. UPPER EXTREMITIES: 2+ pulses, warm, well-perfused. No cyanosis. No clubbing. No peripheral edema. LOWER EXTREMITIES: 2+ pulses, warm, well-perfused. No calf tenderness. No peripheral edema. NEUROLOGICAL: R nasolabial flattening and incomplete elevation on CN exam. PERRL, EOMI, symmetrical elevation of eyebrows. Shoulder shrug weaker on the right. CN 2-12 otherwise intact. RUE 5-/5 strength, LUE 5/5 strength, RLE 4+/5 strength hip flexion/extension, knee flexion/extension, LLE strength 5/5 throughout, sensation intact throughout, reflexes 2+ at b/l biceps, patellar, ankle, No pronator drift. Pt had difficulty with dysdiadochokenesia of R hand, R heel to li, and had R dysmetria. PSYCHIATRIC: Cooperative. Good eye contact. Appropriate mood and affect. SKIN: Warm, dry, normal turgor, no rashes or lesions noted, normal capillary refill. Vital Signs Period Temp Pulse Resp BP Sys/Li Pulse Ox Last 24 Hr 98.0 F-98.3 F 91-111 17-24 117-154/74-94 97-98 ASSESSMENT/PLAN: Pt is a 63 y/o M with no known medical history who has not seen a doctor "since he was born". He stated that he was in his usual state of health until last night, night prior to admission when he woke around 2 am to urinate. He stated he suddenly felt weakness of the right leg and stumbled. He went to his bedroom and sat on his bed. He then stood and again felt weakness of the right leg and stumbled. He believed this to be the result of feeling sleepy as he just woke up. He drove himself to a friend's house and on seeing him, his friend insisted on coming to the doctor. Head CT showed mild to moderate volume loss without acute changes. Head/Neck CTA howed tiny calcified plaque in the left common bifurcation without hemodynamic significant stenosis. Carotid doppler completed with mild thickening of the common bifurcation bilaterally without hemodynamic significant stenosis. Echocardiogram completed with EF 55-60%, mild mirtal and tricuspid regurgitation. Will need MRI brain to evaluate further and not yet completed. Reports improved strength in RLE. LDL checked and in normal range, therefore would not require statin. MRI completed, acute left thalamocapsular infarct. rremainder of workup has been completed and patient advised to remain on aspirin daily along with blood pressure control. continue aspirin 81 mg. Monitor blood pressure, maintain < 140/90. DVT ppx, continues to demonstrate improvement in motor status, would likely still benefit from rehabilitation.
[2019-02-24] MEDS: HYDROCHLOROTHIAZIDE 12.5 MG CAPSULE (FP) PO SCH (09:39)
[2019-02-24] MEDS: LISINOPRIL 5 MG TABLET (FP) PO SCH (09:39)
[2019-02-24] MEDS: ASPIRIN COATED 81 MG TABLET.EC PO SCH (09:39)
[2019-02-24] MEDS: amLODIPine BESYLATE 10 MG TABLET (FP) PO SCH (09:40)
--- NOTE | 2019-02-24 10:54 | PN ---
Physical Exam: SUBJECTIVE: Patient seen and examined, no new complaints, doing well. OBJECTIVE: Vital Signs Period Temp Pulse Resp BP Sys/Li Pulse Ox Last 24 Hr 98.0 F-98.3 F 91-111 17-24 117-154/74-94 97-97 Intake & Output 02/21/19 02/22/19 02/23/19 02/24/19 23:59 23:59 23:59 23:59 Intake Total 430 970 330 100 Output Total 1300 900 750 Balance -870 70 -420 100 general: sitting in chair, no acute distress Neck: soft, supple, no JVD Chest: CTAB, no rales or wheezing Abdomen: soft, NT, ND, pos bowel sounds Extremities: no edema Neuro: AAOX3, right nasolabial fold flattening, RUE 5-/5, LUE 5/5, RLE 4/5, LLE 5/5, speech normal, right shoulder shrug weak Psych: good spirits, actively exercising right side Active Medications Generic Name Dose Route Start Last Admin Trade Name Susy PRN Reason Stop Dose Admin Amlodipine Besylate 10 mg 02/20/19 10:00 02/24/19 09:40 Norvasc - PO 10 mg DAILY [facility] Administration Aspirin 81 mg 02/18/19 10:00 02/24/19 09:39 Ecotrin - PO 81 mg DAILY [facility] Administration Hydrochlorothiazide 25 mg 02/24/19 10:00 02/24/19 09:39 Hctz - PO 25 mg DAILY [facility] Administration Lisinopril 10 mg 02/21/19 07:41 02/24/19 09:39 Prinivil PO 10 mg DAILY [facility] Administration ASSESSMENT/PLAN: 63 yom with no prior medical follow up admitted with Acute left thalamo- capsular infarct with right sided weakness. 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 BP improved, continue lisinopril/amlodipine. Increase HCTZ to 25 mg daily, repeat BMP Lipid panel noted, no need for statin. Neurology input noted. PT eval noted Social work input noted, case discussed, possible acute rehab vs home PT today when arrangements done. Discussed with patient. Visit type - Emergency Visit Emergency Visit: Yes ED Registration Date: 02/17/19 Care time: The patient presented to the Emergency Department on the above date and was hospitalized for further evaluation of their emergent condition. - New Patient This patient is new to me today: No - Critical Care Critical Care patient: No - Discharge Referral Referred to [facility] No
[2019-02-24 11:14] LABS: BLOOD UREA NITROGEN 27.7 mg/dL (7-18); CALCIUM 9.2 mg/dL (8.5-10.1); CREATININE 1.2 mg/dL (0.55-1.3); POTASSIUM 3.8 mmol/L (3.5-5.1)
--- NOTE | 2019-02-24 15:52 | DS ---
Physical Exam: SUBJECTIVE: Patient seen and examined, right sided weakness, that is slowly improving. OBJECTIVE: Vital Signs Period Temp Pulse Resp BP Sys/Li Pulse Ox Last 24 Hr 98.0 F-98.3 F 91-111 18-24 117-150/74-94 97-97 PHYSICAL EXAM general: sitting in chair, no acute distress Neck: soft, supple, no JVD Chest: CTAB, no rales or wheezing Abdomen: soft, NT, ND, pos bowel sounds Extremities: no edema Neuro: AAOX3, right nasolabial fold flattening, RUE 5-/5, LUE 5/5, RLE 4/5, LLE 5/5, speech normal, right shoulder shrug weak Psych: good spirits, actively exercising right side LABS Laboratory Results - last 24 hr 02/24/19 10:15 Sodium 139 Potassium 3.8 Chloride 102 Carbon Dioxide 29 Anion Gap 9 BUN 27.7 H Creatinine 1.2 Est GFR (CKD-EPI)AfAm 75.19 Est GFR (CKD-EPI)NonAf 64.87 Random Glucose [address] brain: CT scan of the head without intravenous contrast No prior is available for comparison. There is [id number] volume loss and ventricular dilatation. Questionable minimal periventricular chronic microvascular ischemic disease changes are present. No mass lesion, gross acute infarct or intracranial hemorrhage are identified. There is no shift of the midline structures. The craniocervical junction appears unremarkable. Focal mucosal thickening in the right maxillary antrum, medially measuring 1 cm suggestive of a retention cyst versus polyp. Otherwise the visualized paranasal sinuses and mastoid air cells are well aerated. The calvarium is intact and is in the IMPRESSION: Mild-to- moderate volume loss without CT evidence of acute CTA head/neck: CTA of the head and neck with intravenous contrast 100 cc of Omnipaque 350 was intravenously injected. Coronal and sagittal reformatted images were obtained. Included portion of the aortic arch and takeoff of the main vessels appear unremarkable. Cervical course of both common carotid arteries appear unremarkable. There is a tiny calcified plaque at the left common carotid bifurcation. Otherwise, the common carotid bifurcation appears unremarkable, bilaterally without evidence of hemodynamically significant stenosis. Both internal carotid arteries appear unremarkable through the intracranial bifurcation. Both vertebral arteries appear unremarkable without gross evidence of stenosis. The vertebrobasilar junction, basilar artery and its intracranial bifurcation appear unremarkable. Both posterior cerebral and superior cerebellar arteries are normally enhanced. There is no gross evidence of focal hemodynamically significant stenosis, major artery cutoff, aneurysm or vascular malformation within the central intracranial arterial circulation. Intracranially, there is mild volume loss. The ventricles are slightly dilated. Basal cisterns appear unremarkable. No gross mass lesion or abnormal enhancement is seen. Both orbits appear unremarkable. Focal mucosal thickening compatible with a retention cyst versus polyp in the right maxillary antrum, medially measuring 1.3 cm Evaluation of the neck soft tissue appears unremarkable without gross evidence of a discrete mass or enlarged lymph nodes. The airway is patent and symmetric without gross narrowing. Questionable mild prominence of the thyroid gland. Included thoracic inlet appears unremarkable. Visualized osseous structures appear intact. There is straightening of the cervical spine in satisfactory alignment. Mild degenerative disc disease at C5- C6 level with prominent anterior spondylosis as well as minimal degenerative disc disease at C6-C7 level. No prevertebral soft tissue swelling is identified IMPRESSION: Tiny calcified plaque at the left common carotid bifurcation without evidence of hemodynamically significant stenosis. Otherwise, the common carotid and internal carotid artery are normally enhanced, bilaterally Both vertebral arteries are normally enhanced without gross evidence of focal stenosis. Intracranially, no focal hemodynamically significant stenosis, aneurysm or major artery cutoff is identified within the central intracranial arterial circulation. Correlate clinically to determine further evaluation and follow-up. Carotid Duplex: Bilateral carotid Doppler ultrasound Grayscale, pulsed Doppler and color Doppler interrogation of both carotid and both vertebral arteries was performed. The right common carotid, internal and external external carotid artery were identified with a peak systolic velocity of 105, 92 and 87 cm/sec, respectively. The left common carotid, internal and external carotid artery were identified with a peak systolic velocity of 77, 65 and 77 cm/sec, respectively. Flow in the physiologic direction was documented in both vertebral arteries. Impression: There is mild intimal thickening at the common carotid bifurcation, bilaterally without evidence of hemodynamically significant stenosis. MRI brain: As per protocol an abbreviated exam was performed consisting of diffusion weighted spin-echo echo - planar, ADC map and T2-weighted FLAIR transaxial imaging. An approximately 1.3 x 0.6 cm acute infarct is seen within the left thalamus laterally with probable involvement of the contiguous posterior limb of the internal capsule. Mild periventricular white matter chronic microvascular ischemic changes are noted. Impression: Acute left thalamocapsular infarct. 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 MRI brain as above showed acute left thalamocapsular infarct. He was followed by neurology, and placed on ASA 81 mg daily.Lipid panel did not require resident services supervisor statin. He was started on amlodipine, lisinopril and hydrochlorothiazide with improvement in his BP. He was seen by physical therapy and is being transferred to rehab. Condition: Stable - Instructions Diet, Activity, Other Instructions: You were seen for a stroke. You were placed on some medications to help. MEDICATIONS; Start: Amlodipine 10 mg daily Lisinopril 10 mg PO daily HCTZ 25 mg PO daily INSTRUCTIONS: Kidney and potassium function monitoring on these medications. While on lisinopril, notify your doctor if any new cough is noted. FOLLOW UP. Please follow-up with Dr. May (neurologist) in 2 weeks for long-term stroke care Please follow-up with Dr. Thao in the next 3-4 days after discharge from rehab to establish a primary care doctor. if you notice new weakness, or any new concerns, call 911 or come to ED. Referrals: Andreas Thao MD [Staff Physician] - (3-5 days with any resident) Yaakov May MD [Staff Physician] - 2 Weeks () [facility]position: [facility] - Home Medications Comprehensive Discharge Medication List: Ambulatory Orders Amlodipine Besylate [Norvasc -] 10 mg PO DAILY 30 Days tablet 02/20/19 Aspirin Coated [Ecotrin -] 81 mg PO DAILY 30 Days tablet.ec 02/20/19 Lisinopril [Prinivil] 10 mg PO DAILY 30 Days #30 tablet 02/21/19 Hydrochlorothiazide [Hctz -] 25 mg PO DAILY cap 02/24/19 This patient is new to me today: No Emergency Visit: Yes ED Registration Date: 02/17/19 Care time: The patient presented to the Emergency Department on the above date and was hospitalized for further evaluation of their emergent condition. Critical Care patient: No - Discharge Referral Referred to [facility] Med P.C.: No
--- NOTE | 2019-02-25 08:58 | PN ---
Physical Exam: SUBJECTIVE: Patient seen and examined, no complaints. OBJECTIVE: Vital Signs Period Temp Pulse Resp BP Sys/Li Pulse Ox Last 24 Hr 98 F-98.3 F 88-121 20-21 136-148/77-94 98 Intake & Output 02/22/19 02/23/19 02/24/19 02/25/19 23:59 23:59 23:59 23:59 Intake Total 970 330 280 120 Output Total 935 130 8225 350 Balance 70 -420 -970 -230 Weight 187 lb general: sitting in chair, no acute distress Neck: soft, supple, no JVD Chest: CTAB, no rales or wheezing Abdomen: soft, NT, ND, pos bowel sounds Extremities: no edema Neuro: AAOX3, right nasolabial fold flattening, RUE 5-/5, LUE 5/5, RLE 4/5, LLE 5/5, speech normal, right shoulder shrug weak Psych: good spirits, actively exercising right side Laboratory Results - last 24 hr 02/24/19 10:15 Sodium 139 Potassium 3.8 Chloride 102 Carbon Dioxide 29 Anion Gap 9 BUN 27.7 H Creatinine 1.2 Est GFR (CKD-EPI)AfAm 75.19 Est GFR (CKD-EPI)NonAf 64.87 Random Glucose 77 Calcium 9.2 Active Medications Generic Name Dose Route Start Last Admin Trade Name Susy PRN Reason Stop Dose Admin Aspirin 81 mg 02/18/19 10:00 02/24/19 09:39 Ecotrin - PO 81 mg DAILY OSMANY Administration Hydrochlorothiazide 25 mg 02/24/19 10:00 02/24/19 09:39 Hctz - PO 25 mg DAILY OSMANY Administration Lisinopril 10 mg 02/21/19 07:41 02/24/19 09:39 Prinivil PO 10 mg DAILY OSMANY Administration Metoprolol Tartrate 25 mg 02/25/19 10:00 Lopressor - PO BID [facility] Telemetry: sinus tach 120s-140s ASSESSMENT/PLAN: 63 yom with no prior medical follow up admitted with Acute left thalamo- capsular infarct with right sided weakness. 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 BP improved, continue lisinopril/HCTZ. Stop amlodipine, start metoprolol 25 mg BID. Lipid panel noted, no need for statin. Neurology input noted. PT demarioal noted Social work input noted, case discussed, possible SNF today. Discussed with CM and nursing. Discussed with patient. Visit type - Emergency Visit Emergency Visit: Yes ED Registration Date: 02/17/19 Care time: The patient presented to the Emergency Department on the above date and was hospitalized for further evaluation of their emergent condition. - New Patient This patient is new to me today: No - Critical Care Critical Care patient: No - Discharge Referral Referred to [facility] Med P.C.: No
[2019-02-25] MEDS: LISINOPRIL 5 MG TABLET (FP) PO SCH (09:35)
[2019-02-25] MEDS: METOPROLOL TARTRATE 25 MG TABLET (FP) PO SCH ×2 (09:35→21:19)
[2019-02-25] MEDS: HYDROCHLOROTHIAZIDE 12.5 MG CAPSULE (FP) PO SCH (09:35)
[2019-02-25] MEDS: ASPIRIN COATED 81 MG TABLET.EC PO SCH (09:35)
[2019-02-26 05:53] VITALS: TEMP 97.9
[2019-02-26] MEDS: METOPROLOL TARTRATE 25 MG TABLET (FP) PO SCH (09:05)
[2019-02-26] MEDS: ASPIRIN COATED 81 MG TABLET.EC PO SCH (09:05)
[2019-02-26] MEDS: HYDROCHLOROTHIAZIDE 12.5 MG CAPSULE (FP) PO SCH (09:05)
[2019-02-26] MEDS: LISINOPRIL 5 MG TABLET (FP) PO SCH (09:06)
--- NOTE | 2019-02-26 10:40 | PN ---
Physical Exam: SUBJECTIVE: Patient seen and examined, reports some pain/swelling medial right knee, and medial right eblow. NO calf pain, leg swelling or redness noted. OBJECTIVE: Vital Signs Period Temp Pulse Resp BP Sys/Li Pulse Ox Last 24 Hr 97.9 F-98.6 F 62-90 18-18 128-143/61-102 98-98 Intake & Output 02/23/19 02/24/19 02/25/19 02/26/19 23:59 23:59 23:59 23:59 Intake Total 330 280 660 100 Output Total 750 1250 350 300 Balance -420 -970 310 -200 Weight 187 lb general: sitting in chair, no acute distress Neck: soft, supple, no JVD Chest: CTAB, no rales or wheezing Abdomen: soft, NT, ND, pos bowel sounds Extremities: no edema Neuro: AAOX3, right nasolabial fold flattening, RUE 5-/5, LUE 5/5, RLE 4/5, LLE 5/5, speech normal, right shoulder shrug weak Psych: good spirits, actively exercising right side Active Medications Generic Name Dose Route Start Last Admin Trade Name Jonathanq PRN Reason Stop Dose Admin Aspirin 81 mg 02/18/19 10:00 02/26/19 09:05 Ecotrin - PO 81 mg DAILY OSMANY Administration Hydrochlorothiazide 25 mg 02/24/19 10:00 02/26/19 09:05 Hctz - PO 25 mg DAILY OSMANY Administration Lisinopril 10 mg 02/21/19 07:41 02/26/19 09:06 Prinivil PO 10 mg DAILY OSMANY Administration Metoprolol Tartrate 25 mg 02/25/19 10:00 02/26/19 09:05 Lopressor - PO 25 mg BID OSMANY Administration 63 yom with no prior medical follow up admitted with Acute left thalamo- capsular infarct with right sided weakness. 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 BP improved, continue lisinopril/HCTZ. Continue metoprolol 25 mg BID. Lipid panel noted, no need for statin. Neurology input noted. Duplex LE neg. ice pack, ongoing PT. PT eval noted Social work input noted, case discussed, dc to SNF when arrangements made. Discussed with patient. Visit type - Emergency Visit Emergency Visit: Yes ED Registration Date: 02/17/19 Care time: The patient presented to the Emergency Department on the above date and was hospitalized for further evaluation of their emergent condition. - New Patient This patient is new to me today: No - Critical Care Critical Care patient: No - Discharge Referral Referred to [facility] Med P.C.: No
[2019-02-26 14:30] VITALS: BP 129/82; PULSE 69
== END 2019-02-26 19:08 | DRG 45 ==
LOC: JER 06:20 → JERBED 11:55 → J2W 18:11
PROVIDERS: ADMIT Internal Medicine; ATTEND Hospitalist
DX: I63.9 Cerebral infarction, unspecified (principal); G81.91 Hemiplegia, unspecified affecting right dominant side; I16.0 Hypertensive urgency; F12.90 Cannabis use, unspecified, uncomplicated; R29.703 NIHSS score 3; I51.7 Cardiomegaly; I08.1 Rheumatic disorders of both mitral and tricuspid valves
CPT/HCPCS: 36415; 70450-TC; 70496-TC; 70498-TC; 70551-TC; 71045-TC-FY; 80048; 80053; 80069; 80307; 81003; 82465; 82550; 82553; 82607; 83036; 83718; 83721; 83735; 84443; 84478; 84484; 85025; 85610; 85651; 86140; 86593; 86850; 86900; 86901; 93005; 93010; 93306-TC; 93880-TC; 93971-TC; 97116-GP; 97162-GP; 99285-25; J0735; J7030

== ENCOUNTER 2021-10-16 12:16 | Emergency (ER) | payer OTHER ==
[2021-10-16 12:29] VITALS: TEMP 97.6; BMI 28.1
[2021-10-16] MEDS ORDERED: morphine CARPU-JECT 2 MG/1 ML DISP.SYRIN IVPUSH ONE (13:40)
[2021-10-16 14:19] LABS: PH,URINE 6.5 (5.0-8.0); URINE APPEARANCE CLEAR; URINE BILIRUBIN NEGATIVE (NEGATIVE); URINE COLOR YELLOW; URINE GLUCOSE (UA) NEGATIVE (NEGATIVE); URINE KETONE NEGATIVE (NEGATIVE); URINE LEUK ESTERASE NEGATIVE (NEGATIVE); URINE NITRITE NEGATIVE (NEGATIVE); URINE PROTEIN NEGATIVE (NEGATIVE); URINE UROBILINOGEN 0.2 mg/dL (0.2-1.0)
[2021-10-16 14:26] LABS: BASO % 0.6 % (0-2.0); EOS % 0.1 % (0-4.5); HEMATOCRIT 41.3 % (35.4-49); HEMOGLOBIN 13.9 GM/dL (11.7-16.9); LYMPH % 14.1 % (8-40); MCH 30.1 pg (25.7-33.7); MCHC 33.8 g/dl (32.0-35.9); MEAN PLT VOLUME 8.2 fl (7.5-11.1); MONO % 11.9 % (3.8-10.2); NEUT % 73.3 % (42.8-82.8); PLATELET COUNT 251 10^3/uL (134-434); RBC 4.64 M/mm3 (4.00-5.60); RDW 13.3 % (11.9-15.9); WHITE BLOOD COUNT 8.3 K/mm3 (4.0-10.0)
[2021-10-16 14:57] LABS: ALBUMIN 4.2 g/dl (3.4-5.0); BLOOD UREA NITROGEN 16.2 mg/dL (7-18); CALCIUM 9.5 mg/dL (8.5-10.1)
[2021-10-16 15:01] LABS: CREATININE 1.2 mg/dL (0.55-1.3)
[2021-10-16 15:02] LABS: BILIRUBIN,TOTAL 0.5 mg/dL (0.2-1)
[2021-10-16 15:42] VITALS: BP 133/80; PULSE 82
== END 2021-10-16 15:42 | disposition home or self-care (01) ==
LOC: JER 12:16
PROC: 3E033GC Introduction of Other Therapeutic Substance into Peripheral Vein, Percutaneous Approach (ICD-10-PCS; principal; 2021-10-16)
DX: R33.8 Other retention of urine (principal)
CPT/HCPCS: 36415; 80053; 81003; 85025; 87086; 99284-25

== ENCOUNTER 2023-10-25 10:59 | Emergency (ER) | payer OTHER ==
[2023-10-25 11:18] VITALS: BP 136/90; PULSE 105; RESP 18; TEMP 98; BMI 25.8
[2023-10-25] MEDS ORDERED: KETOROLAC TROMETHAMINE 30 MG/1 ML VIAL ONE (12:25)
[2023-10-25] MEDS ORDERED: predniSONE 20 MG TABLET (UD) ONE (12:25)
[2023-10-25] MEDS ORDERED: LIDOCAINE 4% PATCH TP ONE (12:25)
[2023-10-25] MEDS: predniSONE 20 MG TABLET (UD) PO ONE (12:31)
[2023-10-25] MEDS: LIDOCAINE 4% PATCH TP ONE (12:31)
[2023-10-25] MEDS: KETOROLAC TROMETHAMINE 30 MG/1 ML VIAL IM ONE (12:31)
[2023-10-25] MEDS ORDERED: LIDOCAINE PATCH REMOVAL MC SCH (22:00)
== END 2023-10-25 16:51 | disposition home or self-care (01) ==
LOC: JERFT 10:59 → MERGE 10:59 → JERFT 16:51
PROC: 3E0133Z Introduction of Anti-inflammatory into Subcutaneous Tissue, Percutaneous Approach (ICD-10-PCS; principal; 2023-10-25)
DX: S42.92XA Fracture of left shoulder girdle, part unspecified, initial encounter for closed fracture (principal); C41.2 Malignant neoplasm of vertebral column; C80.1 Malignant (primary) neoplasm, unspecified; M54.50 Low back pain, unspecified; X58.XXXA Exposure to other specified factors, initial encounter
CPT/HCPCS: 72131-TC; 73030-TC-LT-FY; 99284-25

== ENCOUNTER 2023-11-03 05:07 | Inpatient (IN) | payer OTHER ==
[2023-11-03] MEDS ORDERED: morphine SULFATE 4 MG/ML VIAL ONE (06:08)
[2023-11-03] MEDS ORDERED: ONDANSETRON 4 MG/2 ML VIAL ONE (06:08)
[2023-11-03] MEDS: morphine SULFATE 4 MG/ML VIAL IVPUSH ONE (06:15)
[2023-11-03] MEDS: ONDANSETRON 4 MG/2 ML VIAL IVPUSH ONE (06:15)
[2023-11-03] MEDS: LACTATED RINGERS SOLUTION 1000 ML INFUS.BAG IV ONE (06:27)
[2023-11-03 06:37] LABS: BASO % 0.9 % (0-2.0); EOS % 0.2 % (0-4.5); HEMATOCRIT 27.2 % (35.4-49); HEMOGLOBIN 8.7 GM/dL (11.7-16.9); LYMPH % 15.5 % (8-40); MCH 26.3 pg (25.7-33.7); MCHC 32.1 g/dl (32.0-35.9); MEAN CELL VOLUME 81.8 fl (80-96); MEAN PLT VOLUME 6.9 fl (7.5-11.1); MONO % 9.9 % (3.8-10.2); NEUT % 73.5 % (42.8-82.8); PLATELET COUNT 528 10^3/uL (134-434); RBC 3.32 M/mm3 (4.00-5.60); RDW 16.3 % (11.9-15.9); WHITE BLOOD COUNT 11.8 K/mm3 (4.0-10.0)
[2023-11-03 06:51] LABS: INR 1.38 (0.83-1.09); PROTHROMBIN TIME (PATIENT) 15.7 SEC (9.7-13.0)
[2023-11-03 06:53] LABS: ACTIVATED PTT 31.5 SECONDS (25.2-36.5)
[2023-11-03 06:54] LABS: POTASSIUM 3.9 mmol/L (3.5-5.1)
[2023-11-03 06:56] LABS: CALCIUM 9.5 mg/dL (8.5-10.1)
[2023-11-03 06:57] LABS: ALBUMIN 3.1 g/dl (3.4-5.0); BLOOD UREA NITROGEN 22.5 mg/dL (7-18); MAGNESIUM 2.3 mg/dL (1.8-2.4)
[2023-11-03 07:02] LABS: BILIRUBIN,TOTAL 0.4 mg/dL (0.2-1); TOT PROT 7.7 g/dl (6.4-8.2)
[2023-11-03] MEDS ORDERED: HYDROmorphone HCl 2 MG/ML VIAL ONE (08:33)
[2023-11-03] MEDS: DEXTROSE 5%-LACTATED RINGERS 1,000 ML IV SCH (08:44)
[2023-11-03] MEDS: HYDROmorphone HCl 2 MG/ML VIAL IVPUSH ONE (08:45)
[2023-11-03] MEDS: morphine CARPU-JECT 2 MG/1 ML DISP.SYRIN IVPUSH ONE (08:46)
[2023-11-03] MEDS ORDERED: DEXAMETHASONE SOD PHOSPHATE 4 MG/1 ML VIAL ONE (12:20)
[2023-11-03] MEDS: DEXAMETHASONE SOD PHOSPHATE 4 MG/1 ML VIAL IVPUSH ONE (12:37)
[2023-11-03] MEDS: HYDROmorphone HCl 2 MG/ML VIAL IVPUSH PRN (15:33)
[2023-11-03] MEDS: DEXAMETHASONE SOD PHOSPHATE 4 MG/1 ML VIAL IVPUSH SCH (15:33)
[2023-11-03] MEDS: INSULIN ASPART SLIDING SCALE (NOVOLOG) 1 VIAL SQ SCH (17:21)
[2023-11-03] MEDS: ACETAMINOPHEN 1000 MG/100 ML BAG IVPB PRN (17:38)
[2023-11-03] MEDS ORDERED: FLU VACCINE (FLULAVAL) PF 60 MCG/0.5 ML SYRINGE 2023-2024 IM ONE (20:45)
[2023-11-03] MEDS: CHLORHEXIDINE GLUCONATE 4% CLEANSER FOR DECOLONIZATION TP SCH (21:32)
[2023-11-03] MEDS ORDERED: CHLORHEXIDINE GLUCONATE 4% CLEANSER FOR DECOLONIZATION TP SCH (22:00)
[2023-11-03] MEDS ORDERED: MUPIROCIN 2% TOPICAL OINTMENT FOR DECOLONIZATION NS SCH (22:00)
[2023-11-03] MEDS: MUPIROCIN 2% TOPICAL OINTMENT FOR DECOLONIZATION NS SCH (22:12)
[2023-11-04] MEDS: BENZONATATE 200 MG CAPSULE PO PRN (06:36)
[2023-11-04 07:00] LABS: BASO % 0.1 % (0-2.0); HEMATOCRIT 23.4 % (35.4-49); HEMOGLOBIN 7.7 GM/dL (11.7-16.9); LYMPH % 8.4 % (8-40); MCH 26.7 pg (25.7-33.7); MCHC 32.8 g/dl (32.0-35.9); MEAN CELL VOLUME 81.4 fl (80-96); MEAN PLT VOLUME 6.9 fl (7.5-11.1); MONO % 6.2 % (3.8-10.2); NEUT % 85.3 % (42.8-82.8); PLATELET COUNT 445 10^3/uL (134-434); RBC 2.87 M/mm3 (4.00-5.60); RDW 16.6 % (11.9-15.9); WHITE BLOOD COUNT 10.6 K/mm3 (4.0-10.0)
[2023-11-04 07:19] LABS: POTASSIUM 4.4 mmol/L (3.5-5.1)
[2023-11-04 07:26] LABS: CALCIUM 8.6 mg/dL (8.5-10.1)
[2023-11-04 07:27] LABS: BLOOD UREA NITROGEN 19.8 mg/dL (7-18); MAGNESIUM 2.2 mg/dL (1.8-2.4)
[2023-11-04 07:30] LABS: CREATININE 0.7 mg/dL (0.55-1.3)
[2023-11-04 07:31] LABS: BILIRUBIN,TOTAL 0.5 mg/dL (0.2-1); TOT PROT 6.5 g/dl (6.4-8.2)
[2023-11-04] MEDS ORDERED: EPINEPHrine/PF 1 MG/1 ML (1:1,000) AMPULE ONE ×2 (08:08→08:20)
[2023-11-04 08:22] LABS: ALBUMIN 2.4 g/dl (3.4-5.0)
[2023-11-04] MEDS ORDERED: SEVOFLURANE 250 ML BTL ONE (08:33)
[2023-11-04] MEDS: amLODIPine BESYLATE 10 MG TABLET (FP) PO ONE (08:39)
[2023-11-04] MEDS ORDERED: PROPOFOL 80 ML ONE (08:39)
[2023-11-04] MEDS ORDERED: FENTANYL CITRATE/PF 50 MCG/ML VIAL ONE ×2 (08:39→10:01)
[2023-11-04] MEDS ORDERED: SUCCINYLCHOLINE CHLORIDE 200 MG/10 ML SYRINGE ONE (08:40)
[2023-11-04] MEDS ORDERED: ONDANSETRON 4 MG/2 ML VIAL ONE (08:46)
[2023-11-04] MEDS ORDERED: DEXAMETHASONE SOD PHOSPHATE 4 MG/1 ML VIAL ONE (08:46)
[2023-11-04] MEDS ORDERED: LIDOCAINE HCL/PF 2% SDV 5ML VIAL ONE (08:46)
[2023-11-04] MEDS ORDERED: MIDAZOLAM HCL 2 MG/2 ML SINGLE DOSE VIAL ONE ×2 (08:46→09:39)
[2023-11-04] MEDS ORDERED: ceFAZolin SODIUM 1 GM VIAL ONE (08:46)
[2023-11-04] MEDS: ENOXAPARIN NA (PORCINE) 40 MG/0.4 ML DISP.SYRIN SQ SCH (09:18)
[2023-11-04] MEDS ORDERED: PROPOFOL 20 ML ONE ×4 (10:02→12:45)
[2023-11-04] MEDS ORDERED: HYDROmorphone HCl 2 MG/ML VIAL ONE (10:24)
[2023-11-04] MEDS: ceFAZolin SODIUM 1 GM VIAL IVPB ONE ×2 (10:29→10:55)
[2023-11-04] MEDS ORDERED: LABETALOL HCL 20 MG/4 ML VIAL ONE ×2 (10:46→10:57)
[2023-11-04] MEDS: POLYMYXIN B SULFATE 500,000 UNIT VIAL TP ONE (10:55)
[2023-11-04] MEDS: HYDROGEN PEROXIDE 473 ML PO ONE (10:57)
[2023-11-04] MEDS: THROMBIN (BOVINE) 5,000 UNIT VIAL TP ONE (10:59)
[2023-11-04] MEDS: EPINEPHrine/PF 1 MG/1 ML (1:1,000) AMPULE SQ ONE (11:07)
[2023-11-04] MEDS ORDERED: PROPOFOL 40 ML ONE (11:19)
[2023-11-04] MEDS ORDERED: VANCOMYCIN 1,000 MG VIAL (RESTRICTED TO ID ONLY) ONE (11:35)
[2023-11-04] MEDS ORDERED: hydrALAZINE HCL 20 MG/ML VIAL ONE (12:55)
[2023-11-04] MEDS ORDERED: ONDANSETRON 4 MG/2 ML VIAL IVPUSH PRN (13:41)
[2023-11-04] MEDS: DEXTROSE 5%-LACTATED RINGERS 1,000 ML IV SCH (14:06)
[2023-11-04] MEDS: DEXAMETHASONE SOD PHOSPHATE 10 MG/1 ML VIAL IVPUSH SCH (14:07)
[2023-11-04] MEDS ORDERED: DEXAMETHASONE SOD PHOSPHATE 4 MG/1 ML VIAL IVPUSH SCH (15:00)
[2023-11-04] MEDS: HYDROmorphone *PCA* 10MG/50ML DISP.SYRIN PCA SCH (15:00)
[2023-11-04] MEDS: hydrALAZINE HCL 20 MG/ML VIAL IVPUSH ONE (18:25)
[2023-11-04] MEDS: CEFAZOLIN SODIUM 2 GM in DEXTROSE 5%-WATER 100 ML IVPB SCH ×2 (18:41→19:57)
[2023-11-04] MEDS: CHLORHEXIDINE GLUCONATE 4% CLEANSER FOR DECOLONIZATION TP SCH (21:13)
[2023-11-05] MEDS: ACETAMINOPHEN 1000 MG/100 ML BAG IVPB PRN (02:18)
[2023-11-05] MEDS ORDERED: hydrALAZINE HCL 20 MG/ML VIAL IM PRN (02:33)
[2023-11-05 06:56] LABS: HEMATOCRIT 31.3 % (35.4-49); HEMOGLOBIN 10.2 GM/dL (11.7-16.9); MCH 27.2 pg (25.7-33.7); MCHC 32.7 g/dl (32.0-35.9); MEAN CELL VOLUME 83.1 fl (80-96); MEAN PLT VOLUME 7.3 fl (7.5-11.1); PLATELET COUNT 417 10^3/uL (134-434); RBC 3.76 M/mm3 (4.00-5.60); WHITE BLOOD COUNT 16.9 K/mm3 (4.0-10.0)
[2023-11-05 07:14] LABS: POTASSIUM 4.3 mmol/L (3.5-5.1)
[2023-11-05 07:20] LABS: BLOOD UREA NITROGEN 14.6 mg/dL (7-18)
[2023-11-05] MEDS ORDERED: hydrALAZINE HCL 20 MG/ML VIAL IVPUSH PRN (07:20)
[2023-11-05 07:21] LABS: ALBUMIN 2.2 g/dl (3.4-5.0)
[2023-11-05 07:23] LABS: CREATININE 0.7 mg/dL (0.55-1.3)
[2023-11-05 07:24] LABS: BILIRUBIN,TOTAL 0.6 mg/dL (0.2-1); TOT PROT 6.2 g/dl (6.4-8.2)
[2023-11-05 09:28] LABS: ANISOCYTOSIS 0; MACROCYTOSIS 0
[2023-11-05] MEDS: FAMOTIDINE 20 MG TABLET PO SCH (09:46)
[2023-11-05] MEDS: ENOXAPARIN NA (PORCINE) 40 MG/0.4 ML DISP.SYRIN SQ SCH (09:46)
[2023-11-05] MEDS: LISINOPRIL 10 MG TABLET PO SCH (12:04)
[2023-11-05] MEDS: ACETAMINOPHEN 325 MG TABLET (FP) PO SCH (12:04)
[2023-11-05] MEDS: hydrALAZINE HCL 20 MG/ML VIAL IVPUSH PRN (12:11)
[2023-11-05] MEDS: LOSARTAN POTASSIUM 50 MG TABLET PO SCH (12:42)
[2023-11-05] MEDS: POLYETHYLENE GLYCOL (HEALTHYLAX) 3350 17 GM PACKET PO SCH (13:25)
[2023-11-05] MEDS: DOCUSATE SODIUM 100 MG CAPSULE (FP) PO PRN (13:43)
[2023-11-05] MEDS: SENNOSIDES 8.8 MG/5 ML SYRUP PO SCH (21:47)
[2023-11-06 05:54] LABS: BASO % 0.1 % (0-2.0); HEMATOCRIT 32.3 % (35.4-49); HEMOGLOBIN 10.7 GM/dL (11.7-16.9); LYMPH % 4.6 % (8-40); MCH 27.6 pg (25.7-33.7); MCHC 33.2 g/dl (32.0-35.9); MEAN CELL VOLUME 83.3 fl (80-96); MEAN PLT VOLUME 6.8 fl (7.5-11.1); MONO % 5.8 % (3.8-10.2); NEUT % 89.5 % (42.8-82.8); PLATELET COUNT 434 10^3/uL (134-434); RBC 3.88 M/mm3 (4.00-5.60); WHITE BLOOD COUNT 18.6 K/mm3 (4.0-10.0)
[2023-11-06 06:13] LABS: POTASSIUM 4.2 mmol/L (3.5-5.1)
[2023-11-06 06:17] LABS: ALBUMIN 2.3 g/dl (3.4-5.0)
[2023-11-06 06:19] LABS: CREATININE 0.7 mg/dL (0.55-1.3)
[2023-11-06 06:20] LABS: BILIRUBIN,TOTAL 0.3 mg/dL (0.2-1); TOT PROT 6.3 g/dl (6.4-8.2)
[2023-11-07 06:45] LABS: HEMOGLOBIN 10.9 GM/dL (11.7-16.9); MCH 27.8 pg (25.7-33.7); MCHC 32.9 g/dl (32.0-35.9); MEAN CELL VOLUME 84.4 fl (80-96); PLATELET COUNT 435 10^3/uL (134-434); RBC 3.91 M/mm3 (4.00-5.60); RDW 16.5 % (11.9-15.9); WHITE BLOOD COUNT 16.5 K/mm3 (4.0-10.0)
[2023-11-07 07:05] LABS: CALCIUM 8.3 mg/dL (8.5-10.1)
[2023-11-07 07:06] LABS: BLOOD UREA NITROGEN 23.5 mg/dL (7-18); MAGNESIUM 2.3 mg/dL (1.8-2.4)
[2023-11-07 07:09] LABS: CREATININE 0.7 mg/dL (0.55-1.3); PHOSPHOROUS 2.2 mg/dL (2.5-4.9)
[2023-11-07] MEDS: oxyCODONE HCL 5 MG TABLET PO PRN ×2 (11:59→17:20)
[2023-11-07] MEDS: HYDROmorphone HCl 2 MG/ML VIAL IVPUSH PRN (21:25)
[2023-11-08 07:47] LABS: ALBUMIN 2.2 g/dl (3.4-5.0); BLOOD UREA NITROGEN 21.2 mg/dL (7-18)
[2023-11-08 07:48] LABS: BILIRUBIN,TOTAL 0.4 mg/dL (0.2-1)
[2023-11-08 07:49] LABS: CALCIUM 7.8 mg/dL (8.5-10.1); MAGNESIUM 2.1 mg/dL (1.8-2.4); TOT PROT 5.9 g/dl (6.4-8.2)
[2023-11-08 07:50] LABS: CREATININE 0.7 mg/dL (0.55-1.3); PHOSPHOROUS 2.7 mg/dL (2.5-4.9)
[2023-11-08 08:14] LABS: BASO % 0.1 % (0-2.0); EOS % 0.3 % (0-4.5); HEMATOCRIT 29.8 % (35.4-49); HEMOGLOBIN 10.2 GM/dL (11.7-16.9); LYMPH % 11.3 % (8-40); MCH 28.7 pg (25.7-33.7); MCHC 34.1 g/dl (32.0-35.9); MEAN PLT VOLUME 6.9 fl (7.5-11.1); MONO % 10.4 % (3.8-10.2); NEUT % 77.9 % (42.8-82.8); PLATELET COUNT 426 10^3/uL (134-434); RBC 3.54 M/mm3 (4.00-5.60); RDW 17.3 % (11.9-15.9)
[2023-11-08] MEDS: metoPROLOL SUCCINATE 25 MG TAB.SR.24H (FP) PO ONE (17:06)
[2023-11-09 07:14] LABS: BASO % 0.1 % (0-2.0); HEMATOCRIT 33.3 % (35.4-49); HEMOGLOBIN 10.7 GM/dL (11.7-16.9); LYMPH % 13.5 % (8-40); MCH 27.3 pg (25.7-33.7); MCHC 32.2 g/dl (32.0-35.9); MEAN CELL VOLUME 84.8 fl (80-96); MEAN PLT VOLUME 6.8 fl (7.5-11.1); MONO % 8.5 % (3.8-10.2); NEUT % 76.9 % (42.8-82.8); PLATELET COUNT 442 10^3/uL (134-434); RBC 3.93 M/mm3 (4.00-5.60); RDW 17.5 % (11.9-15.9); WHITE BLOOD COUNT 11.1 K/mm3 (4.0-10.0)
[2023-11-09 07:33] LABS: POTASSIUM 4.4 mmol/L (3.5-5.1)
[2023-11-09 07:40] LABS: ALBUMIN 2.2 g/dl (3.4-5.0); BLOOD UREA NITROGEN 17.6 mg/dL (7-18); CALCIUM 8.5 mg/dL (8.5-10.1); MAGNESIUM 2.4 mg/dL (1.8-2.4)
[2023-11-09 07:43] LABS: CREATININE 0.7 mg/dL (0.55-1.3); PHOSPHOROUS 2.9 mg/dL (2.5-4.9)
[2023-11-09 07:45] LABS: BILIRUBIN,TOTAL 0.4 mg/dL (0.2-1); TOT PROT 6.3 g/dl (6.4-8.2)
[2023-11-09] MEDS: metoPROLOL SUCCINATE 25 MG TAB.SR.24H (FP) PO SCH (09:18)
[2023-11-09 16:01] VITALS: BMI 24.2
[2023-11-09] MEDS: HYDROmorphone HCl 2 MG/ML VIAL IVPUSH PRN (20:45)
[2023-11-10] MEDS: oxyCODONE HCL 5 MG TABLET PO PRN ×2 (05:17→17:50)
[2023-11-10 06:52] LABS: HEMATOCRIT 31.8 % (35.4-49); HEMOGLOBIN 10.5 GM/dL (11.7-16.9); MCH 28.1 pg (25.7-33.7); MEAN CELL VOLUME 85.1 fl (80-96); MEAN PLT VOLUME 6.8 fl (7.5-11.1); PLATELET COUNT 493 10^3/uL (134-434); RBC 3.73 M/mm3 (4.00-5.60); RDW 17.7 % (11.9-15.9); WHITE BLOOD COUNT 12.1 K/mm3 (4.0-10.0)
[2023-11-10 06:57] LABS: POTASSIUM 4.4 mmol/L (3.5-5.1)
[2023-11-10 07:04] LABS: CALCIUM 8.7 mg/dL (8.5-10.1)
[2023-11-10 07:05] LABS: ALBUMIN 2.3 g/dl (3.4-5.0); BLOOD UREA NITROGEN 17.9 mg/dL (7-18); MAGNESIUM 2.2 mg/dL (1.8-2.4)
[2023-11-10 07:08] LABS: CREATININE 0.7 mg/dL (0.55-1.3); PHOSPHOROUS 2.8 mg/dL (2.5-4.9)
[2023-11-10 07:09] LABS: TOT PROT 6.6 g/dl (6.4-8.2)
[2023-11-10 07:10] LABS: BILIRUBIN,TOTAL 0.4 mg/dL (0.2-1)
[2023-11-10] MEDS: BENZOCAINE/MENTH/CETYLPYRD CL 1 EACH LOZENGE MM PRN (08:38)
[2023-11-10] MEDS ORDERED: DOCUSATE SODIUM 100 MG CAPSULE (FP) PO PRN (17:09)
[2023-11-10] MEDS ORDERED: HYDROmorphone HCl 2 MG/ML VIAL IVPUSH PRN (17:15)
[2023-11-10] MEDS ORDERED: hydrALAZINE HCL 20 MG/ML VIAL IVPUSH PRN (17:23)
[2023-11-10] MEDS: guaiFENesin/CODEINE 5 ML UNIT-DOSE CUPS PO SCH (17:49)
[2023-11-10] MEDS: ACETAMINOPHEN 325 MG TABLET (FP) PO SCH (20:57)
[2023-11-10] MEDS: SENNOSIDES 8.8 MG/5 ML SYRUP PO SCH (21:15)
[2023-11-10] MEDS: POLYETHYLENE GLYCOL (HEALTHYLAX) 3350 17 GM PACKET PO SCH (21:15)
[2023-11-11] MEDS: oxyCODONE HCL 5 MG TABLET PO PRN (05:21)
[2023-11-11] MEDS ORDERED: LISINOPRIL 10 MG TABLET PO SCH (10:00)
[2023-11-11 10:47] LABS: HEMOGLOBIN 10.2 GM/dL (11.7-16.9); MCH 27.8 pg (25.7-33.7); MEAN CELL VOLUME 84.4 fl (80-96); MEAN PLT VOLUME 6.9 fl (7.5-11.1); PLATELET COUNT 503 10^3/uL (134-434); RBC 3.67 M/mm3 (4.00-5.60); RDW 17.7 % (11.9-15.9); WHITE BLOOD COUNT 12.7 K/mm3 (4.0-10.0)
[2023-11-11] MEDS: amLODIPine BESYLATE 10 MG TABLET (FP) PO SCH (10:47)
[2023-11-11] MEDS: metoPROLOL SUCCINATE 25 MG TAB.SR.24H (FP) PO SCH (10:47)
[2023-11-11] MEDS: FAMOTIDINE 20 MG TABLET PO SCH (10:47)
[2023-11-11] MEDS: ENOXAPARIN NA (PORCINE) 40 MG/0.4 ML DISP.SYRIN SQ SCH (10:48)
[2023-11-11 11:09] LABS: POTASSIUM 4.3 mmol/L (3.5-5.1)
[2023-11-11 11:35] LABS: ALBUMIN 2.4 g/dl (3.4-5.0); BLOOD UREA NITROGEN 17.6 mg/dL (7-18); CALCIUM 8.8 mg/dL (8.5-10.1)
[2023-11-11 11:36] LABS: MAGNESIUM 2.5 mg/dL (1.8-2.4)
[2023-11-11 11:38] LABS: PHOSPHOROUS 2.7 mg/dL (2.5-4.9)
[2023-11-11 11:39] LABS: CREATININE 0.8 mg/dL (0.55-1.3); TOT PROT 6.6 g/dl (6.4-8.2)
[2023-11-11 11:40] LABS: BILIRUBIN,TOTAL 0.6 mg/dL (0.2-1)
[2023-11-11] MEDS: LIDOCAINE 5% TOPICAL PATCH TP ONE (14:00)
[2023-11-11] MEDS: LIDOCAINE PATCH REMOVAL MC ONE (22:00)
[2023-11-12 09:02] LABS: HEMATOCRIT 30.7 % (35.4-49); HEMOGLOBIN 10.2 GM/dL (11.7-16.9); MCH 27.8 pg (25.7-33.7); MCHC 33.4 g/dl (32.0-35.9); MEAN CELL VOLUME 83.4 fl (80-96); MEAN PLT VOLUME 6.8 fl (7.5-11.1); PLATELET COUNT 544 10^3/uL (134-434); RBC 3.68 M/mm3 (4.00-5.60); RDW 17.9 % (11.9-15.9); WHITE BLOOD COUNT 12.8 K/mm3 (4.0-10.0)
[2023-11-12 09:15] LABS: POTASSIUM 4.6 mmol/L (3.5-5.1)
[2023-11-12 09:20] LABS: CALCIUM 8.8 mg/dL (8.5-10.1)
[2023-11-12 09:21] LABS: ALBUMIN 2.3 g/dl (3.4-5.0); BLOOD UREA NITROGEN 16.6 mg/dL (7-18); MAGNESIUM 2.4 mg/dL (1.8-2.4)
[2023-11-12 09:23] LABS: CREATININE 0.7 mg/dL (0.55-1.3); PHOSPHOROUS 2.7 mg/dL (2.5-4.9)
[2023-11-12 09:25] LABS: BILIRUBIN,TOTAL 0.5 mg/dL (0.2-1); TOT PROT 6.9 g/dl (6.4-8.2)
[2023-11-12] MEDS: morphine SULFATE 4 MG/ML VIAL IVPUSH ONE (10:37)
[2023-11-12] MEDS: BISACODYL 5 MG TABLET.DR (FP) PO ONE (17:05)
[2023-11-13 10:15] LABS: HEMATOCRIT 30.2 % (35.4-49); HEMOGLOBIN 10.1 GM/dL (11.7-16.9); MCHC 33.5 g/dl (32.0-35.9); MEAN CELL VOLUME 83.6 fl (80-96); MEAN PLT VOLUME 6.8 fl (7.5-11.1); PLATELET COUNT 525 10^3/uL (134-434); RBC 3.62 M/mm3 (4.00-5.60); RDW 18.1 % (11.9-15.9)
[2023-11-13 10:36] LABS: POTASSIUM 4.4 mmol/L (3.5-5.1)
[2023-11-13 10:39] LABS: CALCIUM 8.8 mg/dL (8.5-10.1)
[2023-11-13 10:40] LABS: ALBUMIN 2.2 g/dl (3.4-5.0); BLOOD UREA NITROGEN 17.6 mg/dL (7-18)
[2023-11-13 10:43] LABS: CREATININE 0.8 mg/dL (0.55-1.3)
[2023-11-13 10:45] LABS: BILIRUBIN,TOTAL 0.5 mg/dL (0.2-1)
[2023-11-13] MEDS ORDERED: guaiFENesin 600 MG TABLET.ER (FP) PO SCH (22:00)
[2023-11-14 12:12] VITALS: RESP 18
[2023-11-14 15:43] VITALS: BP 102/62; PULSE 100; TEMP 98.8
== END 2023-11-14 19:27 | DRG 519 ==
LOC: JER 05:07 → JERBED 12:14 → JICU 14:30 → J6S 11-10 20:08
PROVIDERS: ADMIT Internal Medicine; ATTEND Internal Medicine
PROC: 4A133J1 Monitoring of Arterial Pulse, Peripheral, Percutaneous Approach (ICD-10-PCS; 2023-11-03)
PROC: 4A133B1 Monitoring of Arterial Pressure, Peripheral, Percutaneous Approach (ICD-10-PCS; 2023-11-03)
PROC: 00NX0ZZ Release Thoracic Spinal Cord, Open Approach (ICD-10-PCS; 2023-11-04)
PROC: 4A11X4G Monitoring of Peripheral Nervous Electrical Activity, Intraoperative, External Approach (ICD-10-PCS; 2023-11-04)
PROC: 30233N1 Transfusion of Nonautologous Red Blood Cells into Peripheral Vein, Percutaneous Approach (ICD-10-PCS; 2023-11-04)
PROC: 00NW0ZZ Release Cervical Spinal Cord, Open Approach (ICD-10-PCS; principal; 2023-11-04 09:00)
DX: C79.51 Secondary malignant neoplasm of bone (principal); G95.29 Other cord compression; I69.351 Hemiplegia and hemiparesis following cerebral infarction affecting right dominant side; M84.58XA Pathological fracture in neoplastic disease, other specified site, initial encounter for fracture; M48.02 Spinal stenosis, cervical region; M48.04 Spinal stenosis, thoracic region; M48.061 Spinal stenosis, lumbar region without neurogenic claudication; C61 Malignant neoplasm of prostate; I10 Essential (primary) hypertension; D50.9 Iron deficiency anemia, unspecified; M50.30 Other cervical disc degeneration, unspecified cervical region; M51.36 Other intervertebral disc degeneration, lumbar region; M51.34 Other intervertebral disc degeneration, thoracic region; R53.1 Weakness; W18.30XA Fall on same level, unspecified, initial encounter; Y92.098 Other place in other non-institutional residence as the place of occurrence of the external cause; Y99.9 Unspecified external cause status; K59.00 Constipation, unspecified
CPT/HCPCS: 0241U-QW; 36415; 36430; 70450-TC; 71045-TC-FY; 72125-TC; 72128-TC; 72131-TC; 72146-TC; 72147-TC; 72148-TC; 72149-TC; 72156-TC; 72170-TC-FY; 74177-TC; 76000-TC-FY; 80048; 80053; 82728; 82962; 83540; 83550; 83735; 84100; 84153; 84402; 84403; 84484; 85025; 85027; 85610; 85730; 86850; 86900; 86901; 86922; 88307-TC; 88311-TC; 88341-TC; 93005; 93010; 93306-TC; 97116-GP; 97163-GP; 99291; J0131; J1100; P9058; Q9967

== ENCOUNTER 2024-07-29 09:46 | Observation (INO) | payer OTHER ==
[2024-07-29 09:59] VITALS: BMI 24.1
[2024-07-29 11:11] LABS: HEMATOCRIT 26.1 % (35.4-49); HEMOGLOBIN 8.3 GM/dL (11.7-16.9); MCH 29.5 pg (25.7-33.7); MCHC 31.8 g/dl (32.0-35.9); MEAN CELL VOLUME 92.8 fl (80-96); MEAN PLT VOLUME 7.5 fl (7.5-11.1); PLATELET COUNT 201 10^3/uL (134-434); RBC 2.81 M/mm3 (4.00-5.60); RDW 20.3 % (11.9-15.9); WHITE BLOOD COUNT 13.8 K/mm3 (4.0-10.0)
[2024-07-29 11:17] LABS: INR 1.38 (0.83-1.09)
[2024-07-29] MEDS ORDERED: morphine SULFATE 4 MG/ML VIAL ONE (11:30)
[2024-07-29] MEDS: morphine CARPU-JECT 4 MG/1 ML DISP.SYRIN IVPUSH ONE (11:36)
[2024-07-29 11:42] LABS: POTASSIUM 3.5 mmol/L (3.5-5.1)
[2024-07-29 11:44] LABS: ALBUMIN 3.4 g/dl (3.4-5.0); BLOOD UREA NITROGEN 17.7 mg/dL (7-18); CALCIUM 7.9 mg/dL (8.5-10.1); MAGNESIUM 2.4 mg/dL (1.8-2.4)
[2024-07-29 11:48] LABS: CREATININE 0.7 mg/dL (0.55-1.3); PHOSPHOROUS 1.7 mg/dL (2.5-4.9)
[2024-07-29 11:49] LABS: BILIRUBIN,TOTAL 0.4 mg/dL (0.2-1); TOT PROT 6.7 g/dl (6.4-8.2)
[2024-07-29 12:38] LABS: ANISOCYTOSIS 1+; MACROCYTOSIS 0
[2024-07-29] MEDS ORDERED: ACETAMINOPHEN INJECTION 100 ML ONE (13:12)
[2024-07-29] MEDS: ACETAMINOPHEN 1000 MG/100 ML BAG IVPB ONE (13:25)
[2024-07-29] MEDS ORDERED: MORPHINE SULFATE 2 MG/ML SYRINGE IVPUSH PRN (15:23)
[2024-07-29] MEDS ORDERED: CycloBENZAprine HCL 5 MG TABLET PO PRN (15:33)
[2024-07-29] MEDS ORDERED: BISACODYL 5 MG TABLET.DR (FP) PO PRN (15:33)
[2024-07-29] MEDS ORDERED: NAPH,MB-DB/K PH,MBDB POWDER PACKET ONE (16:43)
[2024-07-29] MEDS: NAPH,MB-DB/K PH,MBDB POWDER PACKET PO ONE (16:46)
[2024-07-29 19:10] LABS: EPI CELLS 15 /uL (0-25.1); HYALINE CASTS 2 /uL (0-3.1); PH,URINE 5.5 (5.0-8.0); URINE APPEARANCE CLEAR; URINE BACTERIA 12 /uL (0-1359); URINE BILIRUBIN NEGATIVE (NEGATIVE); URINE COLOR YELLOW; URINE GLUCOSE (UA) NEGATIVE (NEGATIVE); URINE KETONE TRACE (NEGATIVE); URINE LEUK ESTERASE NEGATIVE (NEGATIVE); URINE NITRITE NEGATIVE (NEGATIVE); URINE PROTEIN 1+ (NEGATIVE); URINE RBC 19 /uL (0-23.9); URINE UROBILINOGEN 0.2 mg/dL (0.2-1.0); URINE WBC 15 /uL (0-25.8)
[2024-07-29] MEDS: POLYETHYLENE GLYCOL (HEALTHYLAX) 3350 17 GM PACKET PO SCH (21:07)
[2024-07-30 08:49] LABS: HEMATOCRIT 26.2 % (35.4-49); HEMOGLOBIN 8.5 GM/dL (11.7-16.9); MCH 29.8 pg (25.7-33.7); MCHC 32.3 g/dl (32.0-35.9); MEAN CELL VOLUME 92.1 fl (80-96); MEAN PLT VOLUME 7.6 fl (7.5-11.1); PLATELET COUNT 206 10^3/uL (134-434); RBC 2.84 M/mm3 (4.00-5.60); RDW 20.2 % (11.9-15.9); WHITE BLOOD COUNT 11.4 K/mm3 (4.0-10.0)
[2024-07-30 09:03] LABS: POTASSIUM 3.5 mmol/L (3.5-5.1)
[2024-07-30 09:17] LABS: CALCIUM 7.6 mg/dL (8.5-10.1)
[2024-07-30 09:19] LABS: BLOOD UREA NITROGEN 11.3 mg/dL (7-18); MAGNESIUM 2.2 mg/dL (1.8-2.4)
[2024-07-30 09:21] LABS: CREATININE 0.7 mg/dL (0.55-1.3)
[2024-07-30 09:23] LABS: PHOSPHOROUS 1.4 mg/dL (2.5-4.9)
[2024-07-30] MEDS: metoPROLOL SUCCINATE 25 MG TAB.SR.24H (FP) PO SCH (09:49)
[2024-07-30] MEDS: amLODIPine BESYLATE 10 MG TABLET (FP) PO SCH (09:49)
[2024-07-30] MEDS: NAPH,MB-DB/K PH,MBDB POWDER PACKET PO SCH (13:38)
[2024-07-30] MEDS: ACETAMINOPHEN 325 MG TABLET (FP) PO PRN (17:29)
[2024-07-31] MEDS: NAPH,MB-DB/K PH,MBDB POWDER PACKET PO SCH (03:04)
[2024-07-31 09:31] LABS: HEMATOCRIT 26.2 % (35.4-49); HEMOGLOBIN 8.6 GM/dL (11.7-16.9); MCH 30.3 pg (25.7-33.7); MCHC 32.9 g/dl (32.0-35.9); MEAN CELL VOLUME 92.3 fl (80-96); MEAN PLT VOLUME 7.5 fl (7.5-11.1); PLATELET COUNT 228 10^3/uL (134-434); RBC 2.84 M/mm3 (4.00-5.60); RDW 20.5 % (11.9-15.9); WHITE BLOOD COUNT 8.1 K/mm3 (4.0-10.0)
[2024-07-31 09:48] LABS: POTASSIUM 3.8 mmol/L (3.5-5.1)
[2024-07-31 09:51] LABS: CREATININE 0.6 mg/dL (0.55-1.3)
[2024-07-31 09:52] LABS: PHOSPHOROUS 1.6 mg/dL (2.5-4.9)
[2024-07-31 09:53] LABS: BILIRUBIN,TOTAL 0.4 mg/dL (0.2-1); TOT PROT 6.5 g/dl (6.4-8.2)
[2024-07-31 09:55] LABS: ALBUMIN 3.1 g/dl (3.4-5.0)
[2024-07-31 09:56] LABS: BLOOD UREA NITROGEN 11.7 mg/dL (7-18); CALCIUM 7.4 mg/dL (8.5-10.1)
[2024-07-31] MEDS: POTASSIUM PHOSPHATE 15 MM in DEXTROSE 5%-WATER - 250 ML IVPB ONE (13:52)
[2024-08-01 09:13] LABS: HEMATOCRIT 29.1 % (35.4-49); HEMOGLOBIN 9.4 GM/dL (11.7-16.9); MCH 29.7 pg (25.7-33.7); MCHC 32.4 g/dl (32.0-35.9); MEAN CELL VOLUME 91.6 fl (80-96); MEAN PLT VOLUME 7.4 fl (7.5-11.1); PLATELET COUNT 287 10^3/uL (134-434); RBC 3.18 M/mm3 (4.00-5.60); WHITE BLOOD COUNT 5.4 K/mm3 (4.0-10.0)
[2024-08-01 09:55] LABS: POTASSIUM 4.1 mmol/L (3.5-5.1)
[2024-08-01 10:00] LABS: ALBUMIN 3.3 g/dl (3.4-5.0); CALCIUM 7.4 mg/dL (8.5-10.1)
[2024-08-01 10:03] LABS: CREATININE 0.7 mg/dL (0.55-1.3)
[2024-08-01 10:05] LABS: BILIRUBIN,TOTAL 0.5 mg/dL (0.2-1); TOT PROT 7.4 g/dl (6.4-8.2)
[2024-08-01] MEDS: HYDROmorphone HCL CARPU-JECT 2 MG/1 ML DISP.SYRIN IVPUSH PRN (14:24)
[2024-08-01 22:58] VITALS: RESP 18
[2024-08-02 07:46] LABS: BASO % 0.3 % (0-2.0); HEMATOCRIT 29.1 % (35.4-49); HEMOGLOBIN 9.4 GM/dL (11.7-16.9); LYMPH % 12.6 % (8-40); MCH 29.7 pg (25.7-33.7); MCHC 32.2 g/dl (32.0-35.9); MEAN CELL VOLUME 92.2 fl (80-96); MEAN PLT VOLUME 7.2 fl (7.5-11.1); MONO % 11.2 % (3.8-10.2); NEUT % 73.9 % (42.8-82.8); PLATELET COUNT 303 10^3/uL (134-434); RBC 3.15 M/mm3 (4.00-5.60); RDW 20.1 % (11.9-15.9); WHITE BLOOD COUNT 6.6 K/mm3 (4.0-10.0)
[2024-08-02 07:55] LABS: POTASSIUM 4.1 mmol/L (3.5-5.1)
[2024-08-02 08:04] LABS: CALCIUM 7.7 mg/dL (8.5-10.1)
[2024-08-02 08:05] LABS: ALBUMIN 3.4 g/dl (3.4-5.0); BLOOD UREA NITROGEN 12.4 mg/dL (7-18)
[2024-08-02 08:08] LABS: CREATININE 0.6 mg/dL (0.55-1.3)
[2024-08-02 08:10] LABS: BILIRUBIN,TOTAL 0.3 mg/dL (0.2-1); TOT PROT 7.3 g/dl (6.4-8.2)
[2024-08-02 18:02] VITALS: BP 114/72; PULSE 92; TEMP 98.9
== END 2024-08-02 20:12 ==
LOC: JER 09:46 → JERBED 13:28 → J7W 17:46
PROVIDERS: ADMIT Student in an Organized Health Care Education/Training Program
PROC: 3E033NZ Introduction of Analgesics, Hypnotics, Sedatives into Peripheral Vein, Percutaneous Approach (ICD-10-PCS; principal; 2024-07-29)
PROC: 3E033GC Introduction of Other Therapeutic Substance into Peripheral Vein, Percutaneous Approach (ICD-10-PCS; 2024-07-29)
DX: C61 Malignant neoplasm of prostate (principal); C79.51 Secondary malignant neoplasm of bone; N40.0 Benign prostatic hyperplasia without lower urinary tract symptoms; M79.604 Pain in right leg; M79.605 Pain in left leg; G95.20 Unspecified cord compression; I69.351 Hemiplegia and hemiparesis following cerebral infarction affecting right dominant side; M47.896 Other spondylosis, lumbar region; D64.9 Anemia, unspecified; I10 Essential (primary) hypertension; Z87.891 Personal history of nicotine dependence; R26.2 Difficulty in walking, not elsewhere classified
CPT/HCPCS: 0241U-QW; 36415; 72100-TC-FY; 72156-TC; 72157-TC; 72158-TC; 73502-TC-LT-FY; 73564-TC-LT-FY; 80048; 80053; 81003; 83735; 84100; 84153; 84402; 84403; 85025; 85027; 85610; 85651; 85730; 86140; 86850; 86900; 86901; 93005; 93010; 96365; 96375; 96376; 97116-GP; 97162-GP; 99285-25; G0378; J0131